=== PATIENT | female | born 1945 | race Caucasian/White ===

== ENCOUNTER 2018-06-25 05:18 | Inpatient (IN) ==
[2018-06-25] MEDS ORDERED: Metoprolol Tartrate 25 MG Tablet PO ONE (05:50)
[2018-06-25] MEDS ORDERED: Chlorhexidine Gluconate 2% 1 Pack (2 Cloths) TOPICAL ONE (05:50)
[2018-06-25] MEDS ORDERED: Sodium Chlor 0.9% Inj 500 ML IV.SIG SCH (06:00)
[2018-06-25] MEDS ORDERED: Bupivacaine/Epinephrine 0.5% Inj 50 ML Vial ONE (06:58)
[2018-06-25 06:59] LABS: Baso % (Auto) 0.3 % (0.0-2.0); Eos # (Auto) 0.1 th/mm3 (0.0-0.4); Eos % (Auto) 0.7 % (0.0-4.0); Hematocrit 36.8 % (35.0-46.0); Hemoglobin 12.5 gm/dL (11.6-15.3); Lymph % (Auto) 22.5 % (9.0-44.0); Mean Corpuscular HGB Conc 33.9 % (32.0-36.0); Mean Corpuscular Hemoglobin 29.8 pg (27.0-34.0); Mean Corpuscular Volume 87.9 fL (80.0-100.0); Mean Platelet Volume 8.2 fL (7.0-11.0); Mono # (Auto) 0.8 th/mm3 (0.0-0.9); Mono % (Auto) 9.1 % (0.0-8.0); Neut # (Auto) 5.9 th/mm3 (1.8-7.7); Neut % (Auto) 67.4 % (16.0-70.0); Platelet Count 286 th/mm3 (150-450); Red Blood Count 4.18 mil/mm3 (4.00-5.30); Red Cell Distribution Width 14.4 % (11.6-17.2); White Blood Count 8.8 th/mm3 (4.0-11.0)
[2018-06-25] MEDS ORDERED: Gelatin Size 100 Topical Foam ONE ×2 (06:59→07:23)
[2018-06-25] MEDS ORDERED: Thrombin Topical Soln 5,000 UNIT Vial TOPICAL ONE ×2 (06:59→14:05)
[2018-06-25] MEDS ORDERED: ceFAZolin 2 GM Premix Inj 2 GM/50 ML PIGGYBACK IV.SIG ONE (06:59)
[2018-06-25] MEDS ORDERED: Heparin - SQ 10,000 UNITS/ML Vial ONE (06:59)
[2018-06-25] MEDS ORDERED: Propofol Inj 500 MG/50 ML Vial ONE ×2 (07:21→14:47)
[2018-06-25] MEDS ORDERED: HYDROmorphone PF Inj 2 MG/ML Vial ONE (07:22)
[2018-06-25] MEDS ORDERED: fentaNYL Citrate Inj 250 MCG/5 ML Ampul ONE (07:22)
[2018-06-25] MEDS ORDERED: Hypromellose 0.3% Opth Gel 10 GM Bottle ONE (07:22)
[2018-06-25] MEDS ORDERED: Ketamine Inj 50 MG/5 ML Syringe IV.PUSH ONE (07:23)
[2018-06-25] MEDS ORDERED: ceFAZolin 2 GM Premix Inj 2 GM/100 ML BAG IV.SIG ONE (07:50)
[2018-06-25] MEDS ORDERED: Sodium Chlor 0.9% Inj 250 ML ONE (07:50)
[2018-06-25] MEDS ORDERED: ceFAZolin 2 GM/NS 100 ML IV; Q8H IV.SIG SCH ×2 (08:00)
[2018-06-25] MEDS: Vancomycin Inj 1,000 MG in Sodium Chlor 0.9% Inj 250 ML IV.SIG SCH ×2 (08:04→11:03)
[2018-06-25] MEDS ORDERED: Sodium Chlor 0.9% Inj 500 ML IV.SIG ONE ×2 (08:33)
[2018-06-25] MEDS ORDERED: Phenylephrine/NS 1000 MCG/10ML Syringe IV.PUSH ONE (08:33)
[2018-06-25] MEDS ORDERED: Lidocaine PF 1% Inj 5 ML Syringe INFILTRATN ONE (08:33)
[2018-06-25 10:08] LABS: ABG Base Excess 0.6 mmol/L (-2-2); ABG PCO2 34 mmHg (38-42); ABG PO2 225 mmHG (61-120)
[2018-06-25 13:52] LABS: ABG Base Excess -0.8 mmol/L (-2-2); ABG PCO2 32 mmHg (38-42); ABG PO2 254 mmHG (61-120)
[2018-06-25] MEDS ORDERED: Tranexamic Acid Inj 1,000 MG/10 ML Ampul ONE (13:58)
[2018-06-25] MEDS ORDERED: Albumin Human 5% Inj 250 ML IV.SIG ONE (14:20)
[2018-06-25 16:09] LABS: ABG Base Excess -4.1 mmol/L (-2-2); ABG PCO2 31 mmHg (38-42); ABG PO2 251 mmHg (61-120)
[2018-06-25 16:52] LABS: Calcium 6.8 mg/dL (8.5-10.1); Carbon Dioxide 19.7 meq/L (21.0-32.0); Potassium 4.4 meq/L (3.5-5.1)
[2018-06-25 17:00] LABS: ABG Base Excess -5.2 mmol/L (-2-2); ABG PCO2 40 mmHg (38-42); ABG PO2 251 mmHg (61-120)
[2018-06-25] MEDS ORDERED: Calcium Chloride Inj 1 GM/10 ML Syringe ONE (17:02)
[2018-06-25] MEDS ORDERED: Sodium Bicarbonate 8.4% Inj 50 MEQ/50 ML Syringe ONE (17:02)
[2018-06-25 17:11] LABS: Total Protein 4.8 g/dL (6.4-8.2)
[2018-06-25 17:13] LABS: Hematocrit 32.7 % (35.0-46.0); Hemoglobin 11.2 gm/dL (11.6-15.3); Mean Corpuscular HGB Conc 34.2 % (32.0-36.0); Mean Corpuscular Hemoglobin 31.3 pg (27.0-34.0); Mean Corpuscular Volume 91.4 fL (80.0-100.0); Mean Platelet Volume 8.4 fL (7.0-11.0); Platelet Count 200 th/mm3 (150-450); Red Blood Count 3.58 mil/mm3 (4.00-5.30); Red Cell Distribution Width 15.9 % (11.6-17.2); White Blood Count 16.4 th/mm3 (4.0-11.0)
[2018-06-25] MEDS ORDERED: Bisacodyl 10 MG Supp RECTAL PRN (18:00)
[2018-06-25] MEDS ORDERED: *morphine SULFATE 10 MG/ML PERIprocedure ONLY ONE (18:26)
--- NOTE | 2018-06-25 18:29 | XR ---
EXAM DATE: 06/25/2018 6:21 PM EDT AGE/SEX: 72 years / Female INDICATIONS: Evaluate central line placement. CLINICAL DATA: This is the patient's initial encounter. Patient reports that signs and symptoms have been present for 1 day and indicates a pain score of Nonresponsive. MEDICAL/SURGICAL HISTORY: Non-responsive. Non-responsive. COMPARISON: . FINDINGS: There is bibasilar atelectasis, trace on the right and mild on the left. No pleural effusion seen. No pneumothorax. Heart size stable, within normal limits. There is a right internal jugular central venous catheter with tip at the atriocaval junction. CONCLUSION: 1. New right IJ line with tip at the atriocaval junction. No pneumothorax. 2. Left greater than right basilar atelectasis. Electronically signed by: Jaspreet Castro MD 06/25/2018 6:27 PM EDT
[2018-06-25] MEDS ORDERED: HYDROmorphone PCA Inj 6 MG/30 ML PCA.VIAL PCA PRN (18:39)
[2018-06-25] MEDS ORDERED: Naloxone Inj 0.4 MG/ML Vial IV.PUSH PRN (18:39)
[2018-06-25] MEDS ORDERED: HYDROmorphone PCA Inj 6 MG/30 ML PCA.VIAL PCA ONE (18:51)
--- NOTE | 2018-06-25 18:51 | P.OP ---
Preoperative Diagnosis: Lumbar degenerative disk disease with spondylolisthesis and severe spinal stenosis Postoperative Diagnosis: Lumbar degenerative disk disease with spondylolisthesis and severe spinal stenosis Date of procedure: 06/25/18 Procedure: L2-3, L3-4, L4-L5 laminectomy, interbody arthrodhesis using PEEK cage and autologous bone graft, L2-3, L3-4, L4-L5 instrumental fixation using transpedicular screws and rods, L2-L3,L3-4, L4-L5 posterolateral fusion using autologous bone graft and demineralized bone matrix. Microsurgical dissection Anesthesia: AYUSHA Surgeon: Rufino Moreno MD Estimator Printing: Bart Perera Pathology: none sent Operation and Findings: INDICATIONS FOR THE SURGICAL PROCEDURE Ms Warner is a 72 year-old female who presented with intractable mechanical back pain and richy evidence of L3, L4 and L5 lower extremity radiculopathy. She had severe degenerative disk disease with degenerative spondylolisthesis and severe spinal stenosis. She has failed maximum nonsurgical management including multiple modalities of conservative treatment as well as pain management interventions by an interventional pain specialist. A surgical decompression and arthrodhesis were indicated as a last resort. The [id number] details of the procedure, indications, alternatives, risks and potential complications were fully discussed with the patient. The patient fully understood. All the questions were answered. No guarantees were given. He voiced requesting the procedure and provided informed consents. He was offered the alternative of delaying the procedure and continuing with nonsurgical management. DETAILS OF THE SURGICAL PROCEDURE Prior to the procedure, the procedure, risks, and potential complications revisited with the patient. Placement of electrodes for intraoperative neurophysiological monitoring was completed. The patient was taken to the operative room, and following induction of general anesthesia, endotracheal intubation was performed. A Ruffin catheter, bilateral ARA hose and sequential compression devices were placed and kept throughout the procedure. The patient was positioned prone, over a Mikael table over a bolsters. All pressure in the preoperative surgical holding room points were carefully padded with eggcrate and gel mattress. The eyes were tapped shut after ointment was applied by the anesthesiologist to prevent corneal abrasion. A Andrew hugger was placed over the exposed lower body to maintain control of the core body temperature. The electrophysiological team placed the needles and electrodes in their proper location and baseline SSEP's and motor evoked potentials were registered. The entrance to each pedicles was marked using a C arm. The lumbar region was prepped and draped in the usual sterile fashion. The surgical procedure was performed in several steps as follow: SURGICAL APPROACH Once the patient was positioned, a localizing cross-table lateral and AP x-ray was performed with a C-arm. Two paramedian small incisions were outlined on the skin approximately 3cm from the midline. The skin incisions were made with a # 10 blade. Small bleeders were controlled with the cautery. The dissection was then carried out into deeper planes and through the thoracolumbar fascia with a Bovie. The intermuscular septum was identified and the muscles were blunted dissected along the septum. The facets and transverse process of L2-3, L3-4, L4- L5 were exposed and the proper anatomical landmarks were identified. A microsurgical self-retaining retractor was placed on the incision, and a localizing lateralizing cross-table x-ray was performed with an instrument underneath a lamina of the lumbar spine. INSTRUMENTAL FIXATION At this point in the procedure, placement of bilateral transpedicular screws was necessary for stabilization of the spine. Initially, the entry point for the screw was selected anatomically at the junction of the facet, with the transverse process, and the pars interarticularis at L2, L3, L4, and L5. This was started with a Giamshetti needle, followed by the use of K wire. A tap was used to create the threads for the screws. Finally bilateral transpedicular screws were carefully placed bilaterally at L3, L4, and L5 under fluoroscopic visualization. An appropriate purchase was achieved with all screws. The position of each screw was assessed anatomically with an AP, lateral, oblique Xrays. An intraoperative scan view of the spine was then performed using the iso -centric c-arm. Each screw was then assessed electrophysiologically stimulating each screw with a nerve stimulator. SURGICAL DECOMPRESSION There was significant mass effect with compression of the neural structures. In order to relieve neural compression, it was necessary to perform a decompressive laminectomy, with decompression of the spinal canal and bilateral lateral recesses. Note that the scope of such decompression was significantly more extensive than the minimal exposure necessary to perform an interbody fusion, as there was extreme facet arthropathy with severe degeneration of the disk spaces and stenosis cause by the hyperthrophic joint facets. At this point of the procedure the operative microscope was draped in the usual sterile fashion and brought to the field. The rest of the surgical procedure was performed using microdissection technique with the exception of the closure. Under the operating microscope, a decompressive laminectomy was carried out at L3-4, L4,5 as follow: The laminae, base of the spinous processes and facets were carefully drilled exposing the ligamentum flavum. The facets were abnormal with severe spondylolisthesis and gross mechanical instability. A large disk protusion was compressing the neural structures and exiting nerve roots. A near complete facetectomy was necessary resulting in further mechanical instability. The ligamentum flavum appeared hypertrophic, resulting on mass effect on the dorsal surface of the neural structures. The superior free border of the ligamentum flavum was elevated with a ligament dissector and the ligamentum flavum was removed with a 3 and 4 mm Kerrison forceps. The ligament was very adherent to the dural sac and during the dissection, ans extreme care was taken during the dissection. The exiting nerve roots were identified, and a wide foraminotomy was performed with a Kerrison in their trajectory towards the neural foramen. Epidural veins located laterally to the dural sac were coagulated with the bipolar cautery, and then incised using microscissors. Gentle medial retraction of the dural sac allowed me to expose the disc space for the discectomy. Upon completion of the discectomy, an excellent decompression of the neural structures was achieved. INTERBODY ARTHRODHESIS In order to correct the narrowing of the disk space and maintain distraction of the space, and to achieve a solid interbody fusion, it was necessary the insertion of an interbody device into the disk space. Otherwise, the disk space would collapse, compromising the result of the surgical procedure. At this point of the procedure, the annulus fibrosus of the disk was carefully coagulated with a bipolar cautery and incised using an 11 bladed knife. Then, a microdiscectomy was carried out in a standard fashion using a combination of straight and up-biting pituitary forceps. A reverse angle curette was applied underneath the posterior longitudinal ligament, and used to push the disk fragments into the disk space, so they can be safely removed with a pituitary forceps. Once the discectomy was completed, it was necessary to decorticate the endplates, in order to eliminate the cartilaginous endplate and to expose healthy bone appropriate to perform the interbody fusion. The endplates at L3-4 , L4,5 were then thoroughly decorticated using increasing size bone tameka and ring curets, eliminating the cartilaginous fragments from both, the superior and inferior endplates. A disk space distractor was applied to the pedicle screws and gentle distraction was applied. This maneuver was assisted by the use of a disk distractor. Increased motility was noted at the disk, which was consistent with instability due to facet arthropathy. Once a thorough preparation of the disk space was achieved, the disk space was irrigated with antibiotic solution, and the interbody fusion was performed by carefully impacting PEEK cages filled with autologous iliac crest bone graft. The use of several shoe impactors with different angulation, allowed me for an excellent, proper position of the interbody cages at L2-3 L3-4 and L4,5. A solid position of the cage with good purchase was achieved. The position of the cages were assessed anatomically with a probe and radiologically with the C-arm. POSTEROLATERAL FUSION The posterolateral fusion is a critical component to the procedure, to prevent future fatigue and failure of the instrumental fixation. Initially, the transverse processes of the vertebral bodies, lateral surface of the facets and the lateral gutters of the spine were carefully cleaned, eliminating all soft tissue and muscle attachments. The area was then irrigated with a large amount of antibiotic solution. Subsequently, the transverse processes, lateral surface of the facets, and lateral gutters of the spine were thoroughly decorticated using the TPS drill with a 5mm cutting jasmyne, exposing cancellous bone, in preparation for the posterolateral fusion. The incision was again irrigated with antibiotic solution. Then, the posterolateral fusion was then performed by carefully packing the lateral gutters of the spine at L2-3, L3-4, L4,5 with autologous bone graft combined with demineralized bone matrix. I packed as much bone as possible. COMPLETION OF THE INSTRUMENTATION AND CLOSURE The rods were brought to the field, applied to all the screws, and the screw caps were sequentially applied. Compression was performed between the pedicle screws, and final tightening of the screws was completed using a torque wrench. The incision was again thoroughly irrigated with several liters of antibiotic solution, and hemostasis secured with the bipolar cautery. A Valsalva Maneuver performed by the anesthesiologist failed to show any evidence of cerebrospinal fluid leak or bleeding. A 7 mm Mikael-Lafleur drain was left in the epidural space and externalized through a separate stab incision. The incision was then closed in planes. 0 Vicryl was used in an interrupted fashion to close the thoracolumbar fascia and the superficial fascia. The subcutaneous tissue was then approximated using 3-0 Vicryl in an interrupted fashion. Special care was taken to avoid space. The skin was then closed with 4-0 Vicryl in a running, subcuticular fashion. Dermabond was applied to the skin. Each plane of closure was irrigated with antibiotic solution. At the end of the procedure the sponge, needle and instrument counts were all correct. Estimated blood loss was 1000 cc. The patient received 2 UPRBC, and autologous blood via the cell saver. The entire procedure was performed using continuous electrophysiological monitoring of the somatosensorial evoked potentials and EMG. The patient received prophylactic antibiotics. The patient was then extubated and transferred to the recovery room in stable condition.
--- NOTE | 2018-06-25 19:00 | P.CONCC ---
History of Present Illness Primary Care Provider: UNKNOWN History of Present Illness: 72 year-old female presented to Dr. Morneo with intractable mechanical back pain and richy evidence of L3, L4 and L5 lower extremity radiculopathy. She had severe degenerative disk disease with degenerative spondylolisthesis and severe spinal stenosis. She has failed maximum nonsurgical management including multiple modalities of conservative treatment as well as pain management interventions by an interventional pain specialist. She underwent L2-3, L3-4, L4-L5 laminectomy, interbody arthrodhesis using PEEK cage and autologous bone graft, L2-3, L3-4, L4-L5 instrumental fixation using transpedicular screws and rods, L2-L3,L3-4, L4-L5 posterolateral fusion using autologous bone graft and demineralized bone matrix and microsurgical dissection by Dr. Rufino Moreno, and general anesthesia. The procedure was uncomplicated and the patient has been admitted to ICU for postop management. Review of Systems All other systems reviewed negative except as stated in HPI PMFSH - History History Provided By: Patient - Medical History Medical History: Medical History (Last Reviewed 06/25/18 @ 06:05 by Tania Boss) Arthritis Back pain CKD (chronic kidney disease) Depression Fibromyalgia Full dentures GERD (gastroesophageal reflux disease) High cholesterol History of blood product transfusion History of hysterectomy Hypertension Hypothyroidism Joint pain Migraine Neck pain Wears glasses - Surgical History Surgical History: Surgical History (Last Reviewed 06/25/18 @ 06:05 by Tania Boss) History of arthroplasty of right knee History of cholecystectomy History of elbow surgery History of laminectomy History of repair of right rotator cuff - Tobacco History Second Hand Smoke Exposure: No Smoking Status: Former smoker - Alcohol History How Often Do You Have a Drink Containing Alcohol: 2 to 4 times a month - Substance Use History Substance History: No History of Abuse - Travel History Recent Travel in the [facility] Within the Last 8 Weeks: No Medications and Allergies Active Medications: Active Medications Hydrocodone Bitart/Acetaminophen ([place] 10/325) 2 tab PO Q4H PRN PRN Reason: PAIN SCALE 6 TO 10 Hydrocodone Bitart/Acetaminophen ([place] 7.5/325) 1 tab PO Q6H PRN PRN Reason: Pain Al Hydroxide/Mg Hydroxide (Milk Of Magnesia Liq) 30 ml PO Q12H PRN PRN Reason: Mild Constipation Atenolol (Tenormin) 100 mg PO DAILY [facility] Atorvastatin Calcium (Lipitor) 10 mg PO DAILY [facility] Bisacodyl (Dulcolax Supp) 10 mg RECTAL DAILY PRN PRN Reason: SEVERE CONSITIPATION Cyclobenzaprine HCl (Flexeril) 10 mg PO Q8H PRN PRN Reason: MUSCLE SPASM Gabapentin (Neurontin) 400 mg PO QID [facility] Hydrochlorothiazide (Hydrodiuril) 25 mg PO QAM [facility] Lactated Ringer's (Lr 1000 Ml Inj) 1,000 mls @ 30 mls/hr IV.SIG .Q24H [facility] Stop: 06/26/18 05:59 Last Admin: 06/25/18 06:30 Dose: 30 mls/hr Sodium Chloride (Ns Inj) 500 mls @ 30 mls/hr IV.SIG .Q10H [facility] Cefazolin Sodium 2,000 mg/ (Sodium Chloride) 100 mls @ 200 mls/hr IV.SIG COMPUTER FORENSIC SPECIALIST [facility] Stop: 06/28/18 07:59 Last Infusion: 06/25/18 09:50 Dose: Infused Vancomycin HCl 1,000 mg/ (Sodium Chloride) 250 mls @ 250 mls/hr IV.SIG COMPUTER FORENSIC SPECIALIST [facility] Stop: 06/28/18 07:59 Last Admin: 06/25/18 11:03 Dose: 250 mls/hr Cefazolin Sodium/Dextrose (Ancef 2 Gm Premix Inj) 2 gm in 50 mls @ 100 mls/hr IV.SIG Q8H [facility] Stop: 06/26/18 11:29 Potassium Chloride/Sodium Chloride (Ns + Kcl 20 Meq Inj) 1,000 mls @ 100 mls/ hr IV.CONT .Q10H [facility] Hydromorphone/Sodium Chloride (Dilaudid Maternal Fetal Physician Inj) 6 mg in 30 mls @ 0 mls/hr MANDARIN SPEAKING NANNY UNSCH PRN PRN Reason: per MANDARIN SPEAKING NANNY parameters Lactulose (Lactulose Liq) 30 ml PO DAILY PRN PRN Reason: SEVERE CONSITIPATION Naloxone HCl (Narcan Inj) 0.4 mg IV.PUSH PRN PRN PRN Reason: SEE LABEL COMMENTS Non-Formulary Medication (Cholecalciferol (Vitamin D3) [Vitamin D3]) 1,000 unit PO DAILY [facility] Non-Formulary Medication (Levothyroxine [Levothyroxine]) 75 mcg PO DAILY [facility] Non-Formulary Medication (Lafexqaiieso-Asv-Vezz-Fa-Vit K [Adults Multivitamin]) 1 tab PO DAILY [facility] Non-Formulary Medication (Omeprazole [Omeprazole]) 20 mg PO DAILY [facility] Non-Formulary Medication (Magnesium [Magnesium]) 250 mg PO DAILY [facility] Pantoprazole Sodium (Protonix) 40 mg PO DAILY [facility] Senna/Docusate Sodium (Lani-Colace) 1 tab PO BID [facility] Sennosides (Senokot) 17.2 mg PO Q12H PRN PRN Reason: Moderate Constipation Allergies Allergy/AdvReac Type Severity Reaction Status Date / Time No Known Allergies Allergy Verified 06/25/18 06:06 Home Medications Medication Instructions Recorded Confirmed Type atenolol 100 mg PO DAILY 06/23/18 06/25/18 History atorvastatin 10 mg PO DAILY 06/23/18 06/25/18 History cholecalciferol (vitamin D3) 1,000 unit PO DAILY 06/23/18 06/25/18 History [Vitamin D3] gabapentin 400 mg PO QID 06/23/18 06/25/18 History hydrochlorothiazide 25 mg PO QAM 06/23/18 06/25/18 History hydrocodone-acetaminophen 1 tab PO Q6H PRN 06/23/18 06/25/18 History levothyroxine 75 mcg PO DAILY 06/23/18 06/25/18 History magnesium 250 mg PO DAILY 06/23/18 06/25/18 History blcmawddbkqe-jfu-kdiw-FA-vit K 1 tab PO DAILY 06/23/18 06/25/18 History [Adults Multivitamin] omeprazole 20 mg PO DAILY 06/23/18 06/25/18 History Physical Exam Vital signs: Vital Signs 06/25/18 06:30 Temperature 98.9 F Pulse Rate 57 L Respiratory Rate 18 Blood Pressure 149/58 H Pulse Oximetry 100 Intake & Output 06/25/18 06/25/18 06/26/18 06:59 18:59 06:59 Intake Total 3610 / 3610 Output Total 1600 / 1600 Balance 2009 Weight 64.1 kg Intake: IV 210 / 210 Vancomycin Inj 1,000 MG In NS Inj 250 ML @ 250 mls/hr IV.SIG COMPUTER FORENSIC SPECIALIST [facility] Rx#:[id number] Ancef 2 GM Premix Inj 2 gm In 100 / 100 100 ml @ 0 mls/hr IV.SIG .STK- [facility] Rx#:[id number] Ancef Inj 2,000 MG In NS Inj 80 100 / 100 ML @ 200 mls/hr IV.SIG COMPUTER FORENSIC SPECIALIST [facility] Rx#:[id number] Anesthesia Amount 3000 / 3000 Intake (Blood Product) Amt 400 / 400 Rbc As-3 Leukoreduced Unit 400 / 400 [id number] Rbc As-3 Leukoreduced Unit 0 / 0 [id number] Output: Estimated Blood Loss 1000 / 1000 Urine Amount (Catheter) 600 / 600 Indwelling Urethral Catheter 600 / 600 Other: Weight On Admission 64.1 kg - Constitutional no acute distress - Routine HEENT Exam Head: Present: normocephalic, atraumatic Eye: Present: EOMI, PERRL ENT: Present: mucous membranes moist - Routine Neck Exam Present: supple, full ROM. Absent: JVD, carotid bruit - Routine Respiratory Exam Absent: accessory muscle use, rhonchi, stridor, wheezes - Routine Cardiovascular Exam Present: RRR, S1, S2. Absent: gallop, rubs - Routine Abdominal Exam Present: soft, normoactive bowel sounds. Absent: tenderness, distended - Routine Extremities Exam Absent: cyanosis, clubbing, edema - Routine Skin Exam Present: intact. Absent: cyanosis, erythema - Routine Neurological Exam Present: alert, oriented X3, moving all extremities - Detailed Neurological Exam: Coma Scale Eye Opening: Spontaneous Verbal Response: Oriented Motor Response: Obey commands [place] Coma Scale Total: 15 - Routine Psychiatric Exam Present: normal affect - Urinary Catheter Management Indwelling Urethral Catheter Cath placed during this visit: yes Reason for continuing: Hourly intake/output Insertion date: 06/25/18 Insertion time: 09:10 Assessment and Plan - Assessment and Plan Plan: Lower back pain with radiculopathy -Status post surgical intervention -Continue gabapentin -Flexeril -Dilaudid as needed Hypertension -Continue Atenolol and hydrochlorothiazide Dyslipidemia -Atorvastatin DVT GI prophylaxis -Teds SCDs -Pharmacological DVT prophylaxis per neurosurgeon -Pantoprazole 35 minutes of critical care
--- NOTE | 2018-06-25 19:07 | XR ---
EXAM DATE: 06/25/2018 7:02 PM EDT AGE/SEX: 72 years / Female INDICATIONS: L2-L5 Posterior lumbar fusion with removal of coflex. CLINICAL DATA: This is the patient's initial encounter. Patient reports that signs and symptoms have been present for 1 day and indicates a pain score of Nonresponsive. MEDICAL/SURGICAL HISTORY: Hypertension. Arthritis. Gastroesophageal reflux disease. Chronic kidney disease. Hysterectomy. Cholecystectomy. COMPARISON: . FINDINGS: Several views in the operating room show removal of posterior spinous process spacers at L4/L5 and L5 /S1. Subsequently, fusion procedure with interbody and posterior instrumentation takes place from L2 through L5. Alignment is near-anatomic. No acute complications are demonstrated. CONCLUSION: Fusion procedure with interbody and posterior instrumentation at L2-L5. Alignment is within normal li mits. No acute complication demonstrated. Electronically signed by: Jaspreet Castro MD 06/25/2018 7:05 PM EDT
[2018-06-25 19:13] LABS: Hemoglobin 11.9 gm/dL (11.6-15.3); Mean Corpuscular HGB Conc 34.1 % (32.0-36.0); Mean Corpuscular Hemoglobin 30.8 pg (27.0-34.0); Mean Corpuscular Volume 90.3 fL (80.0-100.0); Mean Platelet Volume 7.9 fL (7.0-11.0); Platelet Count 164 th/mm3 (150-450); Red Blood Count 3.87 mil/mm3 (4.00-5.30); Red Cell Distribution Width 16.2 % (11.6-17.2); White Blood Count 12.9 th/mm3 (4.0-11.0)
[2018-06-25] MEDS ORDERED: fentaNYL Citrate Inj 100 MCG/2 ML Ampul ONE (19:20)
[2018-06-25] MEDS: ceFAZolin 2 GM Premix Inj 2 GM/50 ML PIGGYBACK IV.SIG SCH (19:46)
[2018-06-25 19:56] LABS: Calcium 9.6 mg/dL (8.5-10.1); Carbon Dioxide 22.2 meq/L (21.0-32.0); Potassium 4.3 meq/L (3.5-5.1)
[2018-06-26] MEDS: ceFAZolin Inj 2,000 MG in Sodium Chlor 0.9% Inj 80 ML IV.SIG SCH ×2 (04:07→14:35)
[2018-06-26] MEDS: Senna/Docusate Sodium 8.6/50 MG Tablet PO SCH ×3 (04:10→20:15)
[2018-06-26] MEDS: Gabapentin 400 MG Capsule PO SCH ×5 (04:11→20:15)
[2018-06-26 06:11] LABS: Baso % (Auto) 0.1 % (0.0-2.0); Hematocrit 27.1 % (35.0-46.0); Hemoglobin 9.3 gm/dL (11.6-15.3); Lymph # (Auto) 1.4 th/mm3 (1.0-4.8); Lymph % (Auto) 8.9 % (9.0-44.0); Mean Corpuscular HGB Conc 34.4 % (32.0-36.0); Mean Corpuscular Hemoglobin 31.2 pg (27.0-34.0); Mean Corpuscular Volume 90.8 fL (80.0-100.0); Mean Platelet Volume 8.2 fL (7.0-11.0); Mono # (Auto) 1.1 th/mm3 (0.0-0.9); Mono % (Auto) 7.1 % (0.0-8.0); Neut # (Auto) 12.9 th/mm3 (1.8-7.7); Neut % (Auto) 83.9 % (16.0-70.0); Platelet Count 134 th/mm3 (150-450); Red Blood Count 2.98 mil/mm3 (4.00-5.30); Red Cell Distribution Width 15.7 % (11.6-17.2); White Blood Count 15.4 th/mm3 (4.0-11.0)
[2018-06-26] MEDS: Levothyroxine 75 MCG Tablet PO SCH (06:38)
[2018-06-26 06:48] LABS: Calcium 8.6 mg/dL (8.5-10.1); Carbon Dioxide 25.3 meq/L (21.0-32.0); Magnesium 1.7 mg/dL (1.5-2.5); Potassium 5.1 meq/L (3.5-5.1)
--- NOTE | 2018-06-26 07:12 | P.PNCC ---
Subjective Subjective Remarks/Hospital Course: 72 year-old female presented to Dr. Moreno with intractable mechanical back pain and richy evidence of L3, L4 and L5 lower extremity radiculopathy. She had severe degenerative disk disease with degenerative spondylolisthesis and severe spinal stenosis. She has failed maximum nonsurgical management including multiple modalities of conservative treatment as well as pain management interventions by an interventional pain specialist. She underwent L2-3, L3-4, L4-L5 laminectomy, interbody arthrodhesis using PEEK cage and autologous bone graft, L2-3, L3-4, L4-L5 instrumental fixation using transpedicular screws and rods, L2-L3,L3-4, L4-L5 posterolateral fusion using autologous bone graft and demineralized bone matrix and microsurgical dissection by Dr. Rufino Moreno, and general anesthesia. The procedure was uncomplicated and the patient has been admitted to ICU for postop management. 06/26: Looks good following complex lumbar spine surgery. Awake alert breathing comfortably. Hemoglobin stable. Normotensive. Wiggles toes, good sensation in feet. No complaints of radicular pain. Objective Vital Signs / I&O: Vital Signs 06/25/18 17:58 06/25/18 18:00 06/25/18 18:15 Temperature 98.4 F Pulse Rate 75 73 68 Respiratory Rate 12 17 10 L Blood Pressure 149/64 H 144/62 H 139/59 L Pulse Oximetry 100 100 100 06/25/18 18:20 06/25/18 18:30 06/25/18 18:35 Temperature Pulse Rate 65 65 Respiratory Rate 11 L 20 Blood Pressure 93/44 L 97/44 L Pulse Oximetry 100 99 98 06/25/18 18:45 06/25/18 19:00 06/25/18 19:15 Temperature Pulse Rate 65 85 63 Respiratory Rate 14 14 12 Blood Pressure 125/53 L 111/51 L 117/54 L Pulse Oximetry 97 94 L 97 06/25/18 19:30 06/25/18 19:45 06/25/18 20:00 Temperature 97.8 F Pulse Rate 64 65 62 Respiratory Rate 14 17 12 Blood Pressure 123/46 L 124/47 L 113/42 L Pulse Oximetry 99 97 98 06/25/18 20:15 06/25/18 21:00 06/25/18 22:00 Temperature 97.5 F L Pulse Rate 66 61 60 Respiratory Rate 14 15 12 Blood Pressure 110/53 L 112/57 L 137/60 Pulse Oximetry 98 100 98 06/25/18 23:00 06/26/18 00:00 06/26/18 01:00 Temperature 97.9 F Pulse Rate 68 62 62 Respiratory Rate 15 12 15 Blood Pressure 135/71 139/53 L 128/72 Pulse Oximetry 99 100 100 06/26/18 02:00 06/26/18 03:00 06/26/18 04:00 Temperature 98.1 F Pulse Rate 60 63 65 Respiratory Rate 20 14 Blood Pressure 132/65 121/55 L 125/54 L Pulse Oximetry 99 100 98 06/26/18 05:00 06/26/18 06:00 Temperature Pulse Rate 63 68 Respiratory Rate 20 Blood Pressure 135/65 140/58 L Pulse Oximetry 98 98 Intake & Output 06/25/18 06/26/18 06/26/18 18:59 06:59 18:59 Intake Total 3610 / 3610 9150 / 9150 Output Total 1600 / 1600 4345 / 4345 Balance 2009 4805 / 4805 Weight 71.2 kg Intake: IV 210 / 210 150 / 150 Vancomycin Inj 1,000 MG In NS 10 / 10 Inj 250 ML @ 250 mls/hr IV.SIG INTAKE RN [facility] Rx#:[id number] Ancef 2 GM Premix Inj 2 gm In 100 / 100 100 ml @ 0 mls/hr IV.SIG .STK- [facility] Rx#:[id number] Ancef 2 GM Premix Inj 2 gm In 50 / 50 50 ml @ 100 mls/hr IV.SIG Q8H [facility] Rx#:[id number] Ancef Inj 2,000 MG In NS Inj 80 100 / 100 100 / 100 ML @ 100 mls/hr IV.SIG Q8H [facility] Rx#:[id number] Anesthesia Amount 3000 / 3000 9000 / 9000 Intake (Blood Product) Amt 400 / 400 Rbc As-3 Leukoreduced Unit 400 / 400 [id number] Rbc As-3 Leukoreduced Unit 0 / 0 [id number] Output: Estimated Blood Loss 1000 / 1000 3000 / 3000 Urine Amount (Catheter) 600 / 600 1085 / 1085 Indwelling Urethral Catheter 600 / 600 1085 / 1085 Wound Drainage 260 / 260 # 1 Medial Back 260 / 260 Result Diagrams: 06/26/18 06:00 06/26/18 06:00 Objective Remarks: - Constitutional no acute distress - Routine HEENT Exam Head: Present: normocephalic, atraumatic Eye: Present: EOMI, PERRL ENT: Present: mucous membranes moist - Routine Neck Exam Present: supple, full ROM. Absent: JVD, carotid bruit - Routine Respiratory Exam Lungs clear, no adventitious sounds. Absent: accessory muscle use, rhonchi, stridor, wheezes - Routine Cardiovascular Exam Present: RRR, S1, S2. Absent: gallop, rubs, no JVD. - Routine Abdominal Exam Present: soft, normoactive bowel sounds, no guarding. Absent: tenderness, distended - Routine Extremities Exam Absent: cyanosis, clubbing, edema, warm, well-perfused. - Routine Skin Exam Present: intact. Absent: cyanosis, erythema - Routine Neurological Exam Present: alert, oriented X3, moving all extremities. Sensation intact both feet. - Detailed Neurological Exam: Coma Scale Eye Opening: Spontaneous Verbal Response: Oriented Motor Response: Obey commands Sonya Coma Scale Total: 15 - Assessment and Plan - Assessment and Plan Plan: Lower back pain with radiculopathy -Status post lumbar spine surgical intervention -Continue gabapentin -Flexeril -Dilaudid as needed -Regular neuro checks lower extremities. Hypertension -Continue Atenolol and hydrochlorothiazide Dyslipidemia -Atorvastatin DVT GI prophylaxis -Teds SCDs -Pharmacological DVT prophylaxis per neurosurgeon -Pantoprazole Overall impression: Good pain relief, stable hemodynamics and respiratory function. Motor sensory function lower extremities intact.
[2018-06-26] MEDS: ceFAZolin 2 GM Premix Inj 2 GM/50 ML PIGGYBACK IV.SIG SCH (07:50)
[2018-06-26] MEDS: Magnesium Oxide 400 MG Tablet PO SCH (09:00)
[2018-06-26] MEDS: Multivitamin/Minerals Therapeutic Tablet PO SCH (09:00)
[2018-06-26] MEDS: Atenolol 100 MG Tablet PO SCH (09:00)
[2018-06-26] MEDS: Pantoprazole Sodium 20 MG DR Tablet PO SCH (09:01)
[2018-06-26] MEDS: hydroCHLOROthiazide 25 MG Tablet PO SCH (09:01)
--- NOTE | 2018-06-26 11:16 | P.PNNS ---
Subjective Interval history: did well overnight. vitals stable, afebrile. Physical Exam Vital signs: Vital Signs 06/25/18 17:58 06/25/18 18:00 06/25/18 18:15 Temperature 98.4 F Pulse Rate 75 73 68 Respiratory Rate 12 17 10 L Blood Pressure 149/64 H 144/62 H 139/59 L Pulse Oximetry 100 100 100 06/25/18 18:20 06/25/18 18:30 06/25/18 18:35 Temperature Pulse Rate 65 65 Respiratory Rate 11 L 20 Blood Pressure 93/44 L 97/44 L Pulse Oximetry 100 99 98 06/25/18 18:45 06/25/18 19:00 06/25/18 19:15 Temperature Pulse Rate 65 85 63 Respiratory Rate 14 14 12 Blood Pressure 125/53 L 111/51 L 117/54 L Pulse Oximetry 97 94 L 97 06/25/18 19:30 06/25/18 19:45 06/25/18 20:00 Temperature 97.8 F Pulse Rate 64 65 62 Respiratory Rate 14 17 12 Blood Pressure 123/46 L 124/47 L 113/42 L Pulse Oximetry 99 97 98 06/25/18 20:15 06/25/18 21:00 06/25/18 22:00 Temperature 97.5 F L Pulse Rate 66 61 60 Respiratory Rate 14 15 12 Blood Pressure 110/53 L 112/57 L 137/60 Pulse Oximetry 98 100 98 06/25/18 23:00 06/26/18 00:00 06/26/18 01:00 Temperature 97.9 F Pulse Rate 68 62 62 Respiratory Rate 15 12 15 Blood Pressure 135/71 139/53 L 128/72 Pulse Oximetry 99 100 100 06/26/18 02:00 06/26/18 03:00 06/26/18 04:00 Temperature 98.1 F Pulse Rate 60 63 65 Respiratory Rate 20 14 Blood Pressure 132/65 121/55 L 125/54 L Pulse Oximetry 99 100 98 06/26/18 05:00 06/26/18 06:00 06/26/18 07:00 Temperature Pulse Rate 63 68 67 Respiratory Rate 20 12 Blood Pressure 135/65 140/58 L 133/54 L Pulse Oximetry 98 98 100 06/26/18 07:47 06/26/18 08:00 06/26/18 10:26 Temperature 98 F Pulse Rate 67 Respiratory Rate 12 26 H Blood Pressure 124/45 L Pulse Oximetry 100 97 Intake & Output 06/25/18 06/26/18 06/26/18 18:59 06:59 18:59 Intake Total 3610 / 3610 9150 / 9150 2315 / 2315 Output Total 1600 / 1600 4345 / 4345 125 / 125 Balance 2009 4805 / 4805 2190 / 2190 Weight 71.2 kg Intake: IV 210 / 210 150 / 150 2255 / 2255 LR 1000 mL Inj 1,000 ML @ 30 1000 / 1000 mls/hr IV.SIG .Q24H [facility] Rx#: [id number] Vancomycin Inj 1,000 MG In NS 10 250 / 250 Inj 250 ML @ 250 mls/hr IV.SIG [facility]I [facility] Rx#:[id number] Ancef 2 GM Premix Inj 2 gm In 100 / 100 100 ml @ 0 mls/hr IV.SIG .STK- [facility] Rx#:[id number] Ancef 2 GM Premix Inj 2 gm In 50 / 50 50 ml @ 100 mls/hr IV.SIG Q8H [facility] Rx#:[id number] Ancef Inj 2,000 MG In NS Inj 80 100 / 100 100 / 100 ML @ 100 mls/hr IV.SIG Q8H [facility] Rx#:[id number] Oral 60 / 60 Anesthesia Amount 3000 / 3000 9000 / 9000 Intake (Blood Product) Amt 400 / 400 Rbc As-3 Leukoreduced Unit 400 / 400 [id number] Rbc As-3 Leukoreduced Unit 0 / 0 [id number] Output: Estimated Blood Loss 1000 / 1000 3000 / 3000 Urine Amount (Catheter) 600 / 600 1085 / 1085 125 / 125 Indwelling Urethral Catheter 600 / 600 1085 / 1085 125 / 125 Wound Drainage 260 / 260 # 1 Medial Back 260 / 260 Narrative: A&O x 3 Motor 5/5 UE/LE Dressing c/d/i drains in place - Urinary Catheter Management Indwelling Urethral Catheter Cath placed during this visit: yes Reason for continuing: Hourly intake/output Insertion date: 06/25/18 Insertion time: 09:10 Assessment and Plan - Plan post-op 3 level TLIF (06/25). admitted to ICU for age and hemodynamic monitoring H/H: 9 this AM (transfused in OR on 06/25 2 units), check again in AM Post-op: D/c ricardo, keep watson one more day, keep drains in, up to 45 degrees in bed and up to chair, PT, mobilize Keep [employer] today-- transition to po tomorrow
[2018-06-26] MEDS: Sod Chloride 0.9% Inj 1,000 ML IV.SIG SCH (18:17)
[2018-06-27] MEDS: Levothyroxine 75 MCG Tablet PO SCH (05:41)
[2018-06-27 06:12] LABS: Carbon Dioxide 29.8 meq/L (21.0-32.0); Potassium 4.8 meq/L (3.5-5.1)
--- NOTE | 2018-06-27 07:41 | P.PNCC ---
Subjective Subjective Remarks/Hospital Course: 72 year-old female presented to Dr. Moreno with intractable mechanical back pain and richy evidence of L3, L4 and L5 lower extremity radiculopathy. She had severe degenerative disk disease with degenerative spondylolisthesis and severe spinal stenosis. She has failed maximum nonsurgical management including multiple modalities of conservative treatment as well as pain management interventions by an interventional pain specialist. She underwent L2-3, L3-4, L4-L5 laminectomy, interbody arthrodhesis using PEEK cage and autologous bone graft, L2-3, L3-4, L4-L5 instrumental fixation using transpedicular screws and rods, L2-L3,L3-4, L4-L5 posterolateral fusion using autologous bone graft and demineralized bone matrix and microsurgical dissection by Dr. Rufino Moreno, and general anesthesia. The procedure was uncomplicated and the patient has been admitted to ICU for postop management. 06/26: Looks good following complex lumbar spine surgery. Awake alert breathing comfortably. Hemoglobin stable. Normotensive. Wiggles toes, good sensation in feet. No complaints of radicular pain. 06/27: Awake alert tolerating diet well. Normal, typical back pain no radicular pain. Motor and sensory function intact grossly lower extremities. Blood pressure control good. Objective Vital Signs / I&O: Vital Signs 06/26/18 07:47 06/26/18 08:00 06/26/18 10:26 Temperature 98 F Pulse Rate 67 Respiratory Rate 12 26 H Blood Pressure 124/45 L Pulse Oximetry 100 97 06/26/18 12:00 06/26/18 13:09 06/26/18 16:00 Temperature 98.4 F 98.4 F Pulse Rate 60 84 Respiratory Rate 17 14 13 Blood Pressure 123/76 138/48 L Pulse Oximetry 100 100 06/26/18 20:00 06/26/18 20:02 06/26/18 20:29 Temperature 100.8 F H Pulse Rate 86 Respiratory Rate 18 14 Blood Pressure 169/72 H Pulse Oximetry 99 96 06/26/18 20:59 06/27/18 00:00 06/27/18 00:17 Temperature 99.8 F H Pulse Rate 83 Respiratory Rate 12 17 16 Blood Pressure 133/60 Pulse Oximetry 98 06/27/18 00:47 06/27/18 04:00 Temperature 99.8 F H Pulse Rate 65 Respiratory Rate 14 12 Blood Pressure 127/58 L Pulse Oximetry 100 Intake & Output 06/26/18 06/27/18 06/27/18 18:59 06:59 18:59 Intake Total 3395 / 3395 Output Total 1185 / 1185 1840 / 1840 Balance 2210 / 2210 -1840 / -1840 Weight 69.7 kg Intake: IV 2855 / 2855 NS + KCl 20 mEq Inj 1,000 ML @ 500 / 500 100 mls/hr IV.CONT .Q10H [facility] Rx #:[id number] LR 1000 mL Inj 1,000 ML @ 30 1000 / 1000 mls/hr IV.SIG .Q24H [facility] Rx#: [id number] Vancomycin Inj 1,000 MG In NS 250 / 250 Inj 250 ML @ 250 mls/hr IV.SIG BRIEF WRITER [facility] Rx#:[id number] Ancef Inj 2,000 MG In NS Inj 80 100 / 100 ML @ 100 mls/hr IV.SIG Q8H [facility] Rx#:[id number] Oral 540 / 540 Output: Urine Amount (Catheter) 1075 / 1075 1750 / 1750 Indwelling Urethral Catheter 1075 / 1075 1750 / 1750 Wound Drainage 110 / 110 90 / 90 # 1 Medial Back 110 / 110 90 / 90 Result Diagrams: 06/26/18 06:00 06/27/18 05:30 Objective Remarks: - Constitutional no acute distress - Routine HEENT Exam Head: Present: normocephalic, atraumatic Eye: Present: EOMI, PERRL ENT: Present: mucous membranes moist - Routine Neck Exam Present: supple, full ROM. Absent: JVD, carotid bruit - Routine Respiratory Exam Lungs clear, no adventitious sounds. Absent: accessory muscle use, rhonchi, stridor, wheezes - Routine Cardiovascular Exam Present: RRR, S1, S2. Absent: gallop, rubs, no JVD. - Routine Abdominal Exam Present: soft, normoactive bowel sounds, no guarding. Absent: tenderness, distended - Routine Extremities Exam Absent: cyanosis, clubbing, edema, warm, well-perfused. - Routine Skin Exam Present: intact. Absent: cyanosis, erythema - Routine Neurological Exam Present: alert, oriented X3, moving all extremities. Sensation grossly intact both feet. - Detailed Neurological Exam: Coma Scale Eye Opening: Spontaneous Verbal Response: Oriented Motor Response: Obey commands [place] Coma Scale Total: 15 - Assessment and Plan - Assessment and Plan Plan: Lower back pain with radiculopathy -Status post lumbar spine surgical intervention -Continue gabapentin -Flexeril -Dilaudid as needed -Regular neuro checks lower extremities. -Physical therapy Hypertension -Continue Atenolol and hydrochlorothiazide Dyslipidemia -Atorvastatin DVT GI prophylaxis -Teds SCDs -Pharmacological DVT prophylaxis per neurosurgeon -Pantoprazole Overall impression: Good pain relief, stable hemodynamics and respiratory function. Motor sensory function lower extremities intact. Uneventful postoperative course following lumbar decompression and stabilization.
[2018-06-27] MEDS: Magnesium Oxide 400 MG Tablet PO SCH (08:05)
[2018-06-27] MEDS: hydroCHLOROthiazide 25 MG Tablet PO SCH (08:05)
[2018-06-27] MEDS: Multivitamin/Minerals Therapeutic Tablet PO SCH (08:06)
[2018-06-27] MEDS: Gabapentin 400 MG Capsule PO SCH ×4 (08:06→20:51)
[2018-06-27] MEDS: Senna/Docusate Sodium 8.6/50 MG Tablet PO SCH ×2 (08:06→20:51)
[2018-06-27] MEDS: Pantoprazole Sodium 20 MG DR Tablet PO SCH (08:06)
[2018-06-27] MEDS: Atenolol 100 MG Tablet PO SCH (08:06)
--- NOTE | 2018-06-27 10:35 | P.PNNS ---
Subjective Interval history: Doing well, mobilizing with PT Physical Exam Vital signs: Vital Signs 06/26/18 12:00 06/26/18 13:09 06/26/18 16:00 Temperature 98.4 F 98.4 F Pulse Rate 60 84 Respiratory Rate 17 14 13 Blood Pressure 123/76 138/48 L Pulse Oximetry 100 100 06/26/18 20:00 06/26/18 20:02 06/26/18 20:29 Temperature 100.8 F H Pulse Rate 86 Respiratory Rate 18 14 Blood Pressure 169/72 H Pulse Oximetry 99 96 06/26/18 20:59 06/27/18 00:00 06/27/18 00:17 Temperature 99.8 F H Pulse Rate 83 Respiratory Rate 12 17 16 Blood Pressure 133/60 Pulse Oximetry 98 06/27/18 00:47 06/27/18 04:00 Temperature 99.8 F H Pulse Rate 65 Respiratory Rate 14 12 Blood Pressure 127/58 L Pulse Oximetry 100 Intake & Output 06/26/18 06/27/18 06/27/18 18:59 06:59 18:59 Intake Total 3395 / 3395 Output Total 1185 / 1185 1840 / 1840 Balance 2210 / 2210 -1840 / -1840 Weight 69.7 kg Intake: IV 2855 / 2855 NS + KCl 20 mEq Inj 1,000 ML @ 500 / 500 100 mls/hr IV.CONT .Q10H [facility] Rx #:[id number] LR 1000 mL Inj 1,000 ML @ 30 1000 / 1000 mls/hr IV.SIG .Q24H [facility] Rx#: [id number] Vancomycin Inj 1,000 MG In NS 250 / 250 Inj 250 ML @ 250 mls/hr IV.SIG ACID CORRECTION HAND [facility] Rx#:[id number] Ancef Inj 2,000 MG In NS Inj 80 100 / 100 ML @ 100 mls/hr IV.SIG Q8H [facility] Rx#:[id number] Oral 540 / 540 Output: Urine Amount (Catheter) 1075 / 1075 1750 / 1750 Indwelling Urethral Catheter 1075 / 1075 1750 / 1750 Wound Drainage 110 / 110 90 / 90 # 1 Medial Back 110 / 110 90 / 90 Narrative: A&O x 3 Motor 5/5 UE/LE Incision c/d/i - Urinary Catheter Management Indwelling Urethral Catheter Cath placed during this visit: yes Reason for continuing: Hourly intake/output Insertion date: 06/25/18 Insertion time: 09:10 Assessment and Plan - Plan post-op 3 level TLIF (06/25). admitted to ICU for age and hemodynamic monitoring H/H: 9 last 06/26 (transfused in OR on 06/25 2 units), Post-op: D/c ricardo, d/c watson, d/c drains, up to 45 degrees in bed and up to chair, PT, mobilize with brace Custom brace to be ordered (Thursday) Transition to po meds - wean [employer] Ok for transfer to step down
[2018-06-27] MEDS: Sod Chloride 0.9% Inj 1,000 ML IV.SIG SCH (16:52)
[2018-06-28] MEDS: Levothyroxine 75 MCG Tablet PO SCH (05:55)
[2018-06-28] MEDS: Pantoprazole Sodium 20 MG DR Tablet PO SCH (08:33)
[2018-06-28] MEDS: Gabapentin 400 MG Capsule PO SCH ×4 (08:33→20:48)
[2018-06-28] MEDS: hydroCHLOROthiazide 25 MG Tablet PO SCH (08:34)
[2018-06-28] MEDS: Sod Chloride 0.9% Inj 1,000 ML IV.SIG SCH (08:34)
[2018-06-28] MEDS: Senna/Docusate Sodium 8.6/50 MG Tablet PO SCH ×2 (08:34→20:48)
[2018-06-28] MEDS: Atenolol 100 MG Tablet PO SCH (08:34)
[2018-06-28] MEDS: Multivitamin/Minerals Therapeutic Tablet PO SCH (08:34)
[2018-06-28] MEDS: Magnesium Oxide 400 MG Tablet PO SCH (08:34)
[2018-06-28 10:24] LABS: Albumin 2.2 g/dL (3.4-5.0); Anion Gap 10 meq/L (5-15); Aspartate Aminotransferase 76 U/L (15-37); Blood Urea Nitrogen 26 mg/dL (7-18); Calcium 8.6 mg/dL (8.5-10.1); Carbon Dioxide 27.3 meq/L (21.0-32.0); Chloride 103 meq/L (98-107); Glomerular Filtration Rate 41 mL/min (>89); Glucose,Random 131 mg/dL (74-106); Magnesium 1.3 mg/dL (1.5-2.5); Potassium 4.1 meq/L (3.5-5.1); Sodium 140 meq/L (136-145)
[2018-06-28 10:32] LABS: Alanine Aminotransferase 24 U/L (10-53); Alkaline Phosphatase 97 U/L (45-117); Free T4 (Free Thyroxine) 1.38 ng/dL (0.76-1.46); Phosphorus 1.9 mg/dL (2.5-4.9); Total Protein 5.6 g/dL (6.4-8.2)
[2018-06-28 11:44] LABS: Baso % (Auto) 0.4 % (0.0-2.0); Eos # (Auto) 0.1 th/mm3 (0.0-0.4); Eos % (Auto) 1.2 % (0.0-4.0); Hematocrit 23.9 % (35.0-46.0); Hemoglobin 7.9 gm/dL (11.6-15.3); Lymph # (Auto) 2.6 th/mm3 (1.0-4.8); Lymph % (Auto) 21.1 % (9.0-44.0); Mean Corpuscular HGB Conc 33.2 % (32.0-36.0); Mean Corpuscular Hemoglobin 31.3 pg (27.0-34.0); Mean Corpuscular Volume 94.2 fL (80.0-100.0); Mean Platelet Volume 8.5 fL (7.0-11.0); Mono # (Auto) 1.2 th/mm3 (0.0-0.9); Mono % (Auto) 9.6 % (0.0-8.0); Neut # (Auto) 8.4 th/mm3 (1.8-7.7); Neut % (Auto) 67.7 % (16.0-70.0); Platelet Count 155 th/mm3 (150-450); Red Blood Count 2.53 mil/mm3 (4.00-5.30); Red Cell Distribution Width 15.8 % (11.6-17.2); White Blood Count 12.4 th/mm3 (4.0-11.0)
[2018-06-28 13:11] LABS: Hemoglobin A1c 5.3 % (4.3-6.0)
--- NOTE | 2018-06-28 13:44 | P.PNIM ---
Subjective Interval history: 72 year-old female presented to Dr. Moreno with intractable mechanical back pain and richy evidence of L3, L4 and L5 lower extremity radiculopathy. She had severe degenerative disk disease with degenerative spondylolisthesis and severe spinal stenosis. She has failed maximum nonsurgical management including multiple modalities of conservative treatment as well as pain management interventions by an interventional pain specialist. She underwent L2-3, L3-4, L4-L5 laminectomy, interbody arthrodhesis using PEEK cage and autologous bone graft, L2-3, L3-4, L4-L5 instrumental fixation using transpedicular screws and rods, L2-L3,L3-4, L4-L5 posterolateral fusion using autologous bone graft and demineralized bone matrix and microsurgical dissection by Dr. Rufino Moreno, and general anesthesia. The procedure was uncomplicated and the patient has been admitted to ICU for postop management. 06/26: Looks good following complex lumbar spine surgery. Awake alert breathing comfortably. Hemoglobin stable. Normotensive. Wiggles toes, good sensation in feet. No complaints of radicular pain. 06/27: Awake alert tolerating diet well. Normal, typical back pain no radicular pain. Motor and sensory function intact grossly lower extremities. Blood pressure control good. 06-28 TRANSFERRED TO OUR SERVICE TODAY DENIES MUCH PAIN AT THE MOMENT HAS BEEN SWITCHED TO PO PAIN MEDS DW RN AND PT PT STATES SHE IS GOING HOME TOMORROW TRANSFER OUT OF THE ICU ADD ROBAXIN IF AVAILABLE INSTEAD OF FLEXERIL Physical Exam Vital signs: Vital Signs 06/27/18 16:00 06/27/18 19:40 06/27/18 20:00 Temperature 98.4 F 99.8 F H Pulse Rate 77 81 Respiratory Rate 21 20 Blood Pressure 144/74 H 131/96 H Pulse Oximetry 99 100 96 06/27/18 23:00 06/28/18 00:00 06/28/18 04:00 Temperature 100.0 F H 99.7 F H Pulse Rate 73 64 Respiratory Rate 20 20 14 Blood Pressure 134/62 126/54 L Pulse Oximetry 98 100 06/28/18 08:00 06/28/18 10:07 06/28/18 11:08 Temperature 98.9 F Pulse Rate 63 Respiratory Rate 18 16 Blood Pressure 150/62 H Pulse Oximetry 100 98 06/28/18 12:00 Temperature 98.3 F Pulse Rate 70 Respiratory Rate 15 Blood Pressure 113/49 L Pulse Oximetry 99 Intake & Output 06/27/18 06/28/18 06/28/18 18:59 06:59 18:59 Intake Total 1000 / 1000 1000 / 1000 300 / 300 Output Total 1600 / 1600 1280 / 1280 Balance -600 / -600 -280 / -280 300 / 300 Weight 68.5 kg Intake: IV 550 / 550 1000 / 1000 300 / 300 NS Inj 1,000 ML @ 50 mls/hr IV. 550 / 550 1000 / 1000 300 / 300 SIG .Q20H RAHEL Rx#:[id number] Oral 450 / 450 Output: Urine 1200 / 1200 Urine Amount (Catheter) 1600 / 1600 Female External 750 / 750 Indwelling Urethral Catheter 850 / 850 Wound Drainage 80 / 80 # 1 Medial Back 80 / 80 Other: # Voids 3 Narrative: GENERAL: AWAKE ALERT AND ORIENTED X3 TALKATIVE AND COOPERATIVE SKIN: Warm and dry. HEAD: Atraumatic. Normocephalic. EYES: Pupils equal and round. No scleral icterus. No injection or drainage. ENT: No nasal bleeding or discharge. Mucous membranes pink and moist. NECK: Trachea midline. No JVD. CARDIOVASCULAR: Regular rate and rhythm. S1,S2 NO S3 OR S4 RESPIRATORY: No accessory muscle use. Clear to auscultation. Breath sounds equal bilaterally. GASTROINTESTINAL: Abdomen soft, non-tender, nondistended. Hepatic and splenic margins not palpable. MUSCULOSKELETAL: Extremities without clubbing, cyanosis, or edema. No obvious deformities. NEUROLOGICAL: Awake and alert. No obvious cranial nerve deficits. Motor grossly within normal limits. Five out of 5 muscle strength in the arms and legs. Normal speech. PSYCHIATRIC: Appropriate mood and affect; insight and judgment normal. - Urinary Catheter Management Indwelling Urethral Catheter Cath placed during this visit: yes, but has since been removed by the nurse Reason for continuing: Decision to DC catheter Insertion date: 06/25/18 Insertion time: 09:10 Removal date: 06/27/18 Removal time: 12:00 Female External Cath placed during this visit: yes, but has since been removed by the nurse Reason for continuing: Not indwelling catheter Removal date: 06/27/18 Removal time: 12:00 Results - Labs CBC & Chem 7: 06/28/18 11:00 06/28/18 09:00 Laboratory Results - last 24 hr 06/28/18 06/28/18 06/28/18 09:00 11:00 11:00 WBC 12.4 H RBC 2.53 L Hgb 7.9 L Hct 23.9 L MCV 94.2 MCH 31.3 MCHC 33.2 RDW 15.8 Plt Count 155 MPV 8.5 Neut % (Auto) 67.7 Lymph % (Auto) 21.1 [place] % (Auto) 9.6 H Eos % (Auto) 1.2 Baso % (Auto) 0.4 Neut # (Auto) 8.4 H Lymph # (Auto) 2.6 [place] # (Auto) 1.2 H Eos # (Auto) 0.1 Baso # (Auto) 0.0 WBC Differential . Differential Comment Auto diff final Sodium 140 Potassium 4.1 Chloride 103 Carbon Dioxide 27.3 Anion Gap 10 BUN 26 H Creatinine 1.28 H Estimated GFR 41 L Random Glucose 131 H Hemoglobin A1c 5.3 Calcium 8.6 Phosphorus 1.9 L Magnesium 1.3 L Total Bilirubin 0.8 AST 76 H ALT 24 Alkaline Phosphatase 97 Total Protein 5.6 L D Albumin 2.2 L TSH 1.100 Free T4 1.38 - Imaging ITS Impressions Chest X-Ray 06/25/18 00:00 CONCLUSION: 1. New right IJ line with tip at the atriocaval junction. No pneumothorax. 2. Left greater than right basilar atelectasis. Lumbar Spine X-Ray 06/25/18 00:00 CONCLUSION: Fusion procedure with interbody and posterior instrumentation at L2-L5. Alignment is within normal limits. No acute complication demonstrated. - Procedures Preoperative Diagnosis: Lumbar degenerative disk disease with spondylolisthesis and severe spinal stenosis Postoperative Diagnosis: Lumbar degenerative disk disease with spondylolisthesis and severe spinal stenosis Date of procedure: 06/25/18 Procedure: L2-3, L3-4, L4-L5 laminectomy, interbody arthrodhesis using PEEK cage and autologous bone graft, L2-3, L3-4, L4-L5 instrumental fixation using transpedicular screws and rods, L2-L3,L3-4, L4-L5 posterolateral fusion using autologous bone graft and demineralized bone matrix. Microsurgical dissection Anesthesia: GETA Surgeon: Rufino Moreno MD Putty And Patch Worker: Bart Perera Pathology: none sent Operation and Findings: INDICATIONS FOR THE SURGICAL PROCEDURE Ms Warner is a 72 year-old female who presented with intractable mechanical back pain and richy evidence of L3, L4 and L5 lower extremity radiculopathy. She had severe degenerative disk disease with degenerative spondylolisthesis and severe spinal stenosis. She has failed maximum nonsurgical management including multiple modalities of conservative treatment as well as pain management interventions by an interventional pain specialist. A surgical decompression and arthrodhesis were indicated as a last resort. The [id number] details of the procedure, indications, alternatives, risks and potential complications were fully discussed with the patient. The patient fully understood. All the questions were answered. No guarantees were given. He voiced requesting the procedure and provided informed consents. He was offered the alternative of delaying the procedure and continuing with nonsurgical management. DETAILS OF THE SURGICAL PROCEDURE Prior to the procedure, the procedure, risks, and potential complications revisited with the patient. Placement of electrodes for intraoperative neurophysiological monitoring was completed. The patient was taken to the operative room, and following induction of general anesthesia, endotracheal intubation was performed. A Ruffin catheter, bilateral ARA hose and sequential compression devices were placed and kept throughout the procedure. The patient was positioned prone, over a Mikael table over a bolsters. All pressure in the preoperative surgical holding room points were carefully padded with eggcrate and gel mattress. The eyes were tapped shut after ointment was applied by the anesthesiologist to prevent corneal abrasion. A Andrew hugger was placed over the exposed lower body to maintain control of the core body temperature. The electrophysiological team placed the needles and electrodes in their proper location and baseline SSEP's and motor evoked potentials were registered. The entrance to each pedicles was marked using a C arm. The lumbar region was prepped and draped in the usual sterile fashion. The surgical procedure was performed in several steps as follow: SURGICAL APPROACH Once the patient was positioned, a localizing cross-table lateral and AP x-ray was performed with a C-arm. Two paramedian small incisions were outlined on the skin approximately 3cm from the midline. The skin incisions were made with a # 10 blade. Small bleeders were controlled with the cautery. The dissection was then carried out into deeper planes and through the thoracolumbar fascia with a Bovie. The intermuscular septum was identified and the muscles were blunted dissected along the septum. The facets and transverse process of L2-3, L3-4, L4- L5 were exposed and the proper anatomical landmarks were identified. A microsurgical self-retaining retractor was placed on the incision, and a localizing lateralizing cross-table x-ray was performed with an instrument underneath a lamina of the lumbar spine. INSTRUMENTAL FIXATION At this point in the procedure, placement of bilateral transpedicular screws was necessary for stabilization of the spine. Initially, the entry point for the screw was selected anatomically at the junction of the facet, with the transverse process, and the pars interarticularis at L2, L3, L4, and L5. This was started with a Giamshetti needle, followed by the use of K wire. A tap was used to create the threads for the screws. Finally bilateral transpedicular screws were carefully placed bilaterally at L3, L4, and L5 under fluoroscopic visualization. An appropriate purchase was achieved with all screws. The position of each screw was assessed anatomically with an AP, lateral, oblique Xrays. An intraoperative scan view of the spine was then performed using the iso -centric c-arm. Each screw was then assessed electrophysiologically stimulating each screw with a nerve stimulator. SURGICAL DECOMPRESSION There was significant mass effect with compression of the neural structures. In order to relieve neural compression, it was necessary to perform a decompressive laminectomy, with decompression of the spinal canal and bilateral lateral recesses. Note that the scope of such decompression was significantly more extensive than the minimal exposure necessary to perform an interbody fusion, as there was extreme facet arthropathy with severe degeneration of the disk spaces and stenosis cause by the hyperthrophic joint facets. At this point of the procedure the operative microscope was draped in the usual sterile fashion and brought to the field. The rest of the surgical procedure was performed using microdissection technique with the exception of the closure. Under the operating microscope, a decompressive laminectomy was carried out at L3-4, L4,5 as follow: The laminae, base of the spinous processes and facets were carefully drilled exposing the ligamentum flavum. The facets were abnormal with severe spondylolisthesis and gross mechanical instability. A large disk protusion was compressing the neural structures and exiting nerve roots. A near complete facetectomy was necessary resulting in further mechanical instability. The ligamentum flavum appeared hypertrophic, resulting on mass effect on the dorsal surface of the neural structures. The superior free border of the ligamentum flavum was elevated with a ligament dissector and the ligamentum flavum was removed with a 3 and 4 mm Kerrison forceps. The ligament was very adherent to the dural sac and during the dissection, ans extreme care was taken during the dissection. The exiting nerve roots were identified, and a wide foraminotomy was performed with a Kerrison in their trajectory towards the neural foramen. Epidural veins located laterally to the dural sac were coagulated with the bipolar cautery, and then incised using microscissors. Gentle medial retraction of the dural sac allowed me to expose the disc space for the discectomy. Upon completion of the discectomy, an excellent decompression of the neural structures was achieved. INTERBODY ARTHRODHESIS In order to correct the narrowing of the disk space and maintain distraction of the space, and to achieve a solid interbody fusion, it was necessary the insertion of an interbody device into the disk space. Otherwise, the disk space would collapse, compromising the result of the surgical procedure. At this point of the procedure, the annulus fibrosus of the disk was carefully coagulated with a bipolar cautery and incised using an 11 bladed knife. Then, a microdiscectomy was carried out in a standard fashion using a combination of straight and up-biting pituitary forceps. A reverse angle curette was applied underneath the posterior longitudinal ligament, and used to push the disk fragments into the disk space, so they can be safely removed with a pituitary forceps. Once the discectomy was completed, it was necessary to decorticate the endplates, in order to eliminate the cartilaginous endplate and to expose healthy bone appropriate to perform the interbody fusion. The endplates at L3-4 , L4,5 were then thoroughly decorticated using increasing size bone tameka and ring curets, eliminating the cartilaginous fragments from both, the superior and inferior endplates. A disk space distractor was applied to the pedicle screws and gentle distraction was applied. This maneuver was assisted by the use of a disk distractor. Increased motility was noted at the disk, which was consistent with instability due to facet arthropathy. Once a thorough preparation of the disk space was achieved, the disk space was irrigated with antibiotic solution, and the interbody fusion was performed by carefully impacting PEEK cages filled with autologous iliac crest bone graft. The use of several shoe impactors with different angulation, allowed me for an excellent, proper position of the interbody cages at L2-3 L3-4 and L4,5. A solid position of the cage with good purchase was achieved. The position of the cages were assessed anatomically with a probe and radiologically with the C-arm. POSTEROLATERAL FUSION The posterolateral fusion is a critical component to the procedure, to prevent future fatigue and failure of the instrumental fixation. Initially, the transverse processes of the vertebral bodies, lateral surface of the facets and the lateral gutters of the spine were carefully cleaned, eliminating all soft tissue and muscle attachments. The area was then irrigated with a large amount of antibiotic solution. Subsequently, the transverse processes, lateral surface of the facets, and lateral gutters of the spine were thoroughly decorticated using the TPS drill with a 5mm cutting jasmyne, exposing cancellous bone, in preparation for the posterolateral fusion. The incision was again irrigated with antibiotic solution. Then, the posterolateral fusion was then performed by carefully packing the lateral gutters of the spine at L2-3, L3-4, L4,5 with autologous bone graft combined with demineralized bone matrix. I packed as much bone as possible. COMPLETION OF THE INSTRUMENTATION AND CLOSURE The rods were brought to the field, applied to all the screws, and the screw caps were sequentially applied. Compression was performed between the pedicle screws, and final tightening of the screws was completed using a torque wrench. The incision was again thoroughly irrigated with several liters of antibiotic solution, and hemostasis secured with the bipolar cautery. A Valsalva Maneuver performed by the anesthesiologist failed to show any evidence of cerebrospinal fluid leak or bleeding. A 7 mm Mikael-Lafleur drain was left in the epidural space and externalized through a separate stab incision. The incision was then closed in planes. 0 Vicryl was used in an interrupted fashion to close the thoracolumbar fascia and the superficial fascia. The subcutaneous tissue was then approximated using 3-0 Vicryl in an interrupted fashion. Special care was taken to avoid space. The skin was then closed with 4-0 Vicryl in a running, subcuticular fashion. Dermabond was applied to the skin. Each plane of closure was irrigated with antibiotic solution. At the end of the procedure the sponge, needle and instrument counts were all correct. Estimated blood loss was 1000 cc. The patient received 2 UPRBC, and autologous blood via the cell saver. The entire procedure was performed using continuous electrophysiological monitoring of the somatosensorial evoked potentials and EMG. The patient received prophylactic antibiotics. The patient was then extubated and transferred to the recovery room in stable condition. Documented By: Rufino Moreno MD Assessment and Plan - Plan Lower back pain with radiculopathy -Status post lumbar spine surgical intervention -Continue gabapentin -ROBAXIN IF AVAILABLE SWITCH TO PO MEDS -Regular neuro checks lower extremities. -Physical therapy OT Hypertension -Continue Atenolol and hydrochlorothiazide Dyslipidemia -Atorvastatin DVT GI prophylaxis -Teds SCDs -Pharmacological DVT prophylaxis per neurosurgeon -Pantoprazole Overall impression: Good pain relief, stable hemodynamics and respiratory function. Motor sensory function lower extremities intact. Uneventful postoperative course following lumbar decompression and stabilization. OK TO MOVE OUT OF ICU Code Status: FULL CODE Discussed Condition With: RN AND PT Discharge Planning: HOPEFULLY HOME TOMORROW
[2018-06-28] MEDS: Methocarbamol 500 MG Tablet PO SCH ×2 (14:41→21:05)
[2018-06-28] MEDS ORDERED: Magnesium Sulfate Inj 2 GM in Sodium Chlor 0.9% Inj 96 ML IV.SIG ONE (15:00)
--- NOTE | 2018-06-28 15:01 | P.PNNS ---
Subjective Interval history: 06/28: still requiring her [employer], only ambulated short distance yesterday and had sat up in chair for a bout an hour. <Renetta Rosario - Last Filed: 06/28/18 15:01> Physical Exam Vital signs: Vital Signs 06/27/18 16:00 06/27/18 19:40 06/27/18 20:00 Temperature 98.4 F 99.8 F H Pulse Rate 77 81 Respiratory Rate 21 20 Blood Pressure 144/74 H 131/96 H Pulse Oximetry 99 100 96 06/27/18 23:00 06/28/18 00:00 06/28/18 04:00 Temperature 100.0 F H 99.7 F H Pulse Rate 73 64 Respiratory Rate 20 20 14 Blood Pressure 134/62 126/54 L Pulse Oximetry 98 100 06/28/18 08:00 06/28/18 10:07 06/28/18 11:08 Temperature 98.9 F Pulse Rate 63 Respiratory Rate 18 16 Blood Pressure 150/62 H Pulse Oximetry 100 98 06/28/18 12:00 06/28/18 14:40 Temperature 98.3 F Pulse Rate 70 Respiratory Rate 15 18 Blood Pressure 113/49 L Pulse Oximetry 99 Intake & Output 06/27/18 06/28/18 06/28/18 18:59 06:59 18:59 Intake Total 1000 / 1000 1000 / 1000 300 / 300 Output Total 1600 / 1600 1280 / 1280 Balance -600 / -600 -280 / -280 300 / 300 Weight 68.5 kg Intake: IV 550 / 550 1000 / 1000 300 / 300 NS Inj 1,000 ML @ 50 mls/hr IV. 550 / 550 1000 / 1000 300 / 300 SIG .Q20H RAHEL Rx#:[id number] Oral 450 / 450 Output: Urine 1200 / 1200 Urine Amount (Catheter) 1600 / 1600 Female External 750 / 750 Indwelling Urethral Catheter 850 / 850 Wound Drainage 80 / 80 # 1 Medial Back 80 / 80 Other: # Voids 3 Narrative: A&O x 3 Laying in bed in no acute distress Motor 5/5 UE/LE pupils equal, facial motor symmetric - Urinary Catheter Management Indwelling Urethral Catheter Cath placed during this visit: yes, but has since been removed by the nurse Reason for continuing: Decision to DC catheter Insertion date: 06/25/18 Insertion time: 09:10 Removal date: 06/27/18 Removal time: 12:00 Female External Cath placed during this visit: yes, but has since been removed by the nurse Reason for continuing: Not indwelling catheter Removal date: 06/27/18 Removal time: 12:00 <Renetta Rosario - Last Filed: 06/28/18 15:01> - Urinary Catheter Management Indwelling Urethral Catheter Cath placed during this visit: no Female External Cath placed during this visit: no <Rufino Moreno - Last Filed: 07/02/18 14:54> Assessment and Plan - Plan post-op 3 level TLIF (06/25). admitted to ICU for age and hemodynamic monitoring Plan: Awaiting Custom brace, cont TLSO when out of bed dc [employer] and transition to po meds clear to transfer out of ICU to 6N dc planning to home with [facility] service tomorrow <Renetta Rosario - Last Filed: 06/28/18 15:01> - Plan The exam, history, and the medical decision-making described in the above note were completed with the assistance of the mid-level provider. I reviewed and agree with the findings presented. I attest that I had a [id number] encounter with the patient on the same day, and personally performed and documented my assessment and findings in the medical record. <Rufino Moreno - Last Filed: 07/02/18 14:54>
[2018-06-29 04:53] LABS: Baso % (Auto) 0.2 % (0.0-2.0); Eos # (Auto) 0.2 th/mm3 (0.0-0.4); Eos % (Auto) 1.6 % (0.0-4.0); Hematocrit 24.6 % (35.0-46.0); Hemoglobin 8.1 gm/dL (11.6-15.3); Lymph # (Auto) 2.3 th/mm3 (1.0-4.8); Lymph % (Auto) 20.2 % (9.0-44.0); Mean Corpuscular HGB Conc 32.8 % (32.0-36.0); Mean Corpuscular Volume 94.4 fL (80.0-100.0); Mean Platelet Volume 8.6 fL (7.0-11.0); Mono % (Auto) 8.8 % (0.0-8.0); Neut % (Auto) 69.2 % (16.0-70.0); Platelet Count 178 th/mm3 (150-450); Red Blood Count 2.61 mil/mm3 (4.00-5.30); Red Cell Distribution Width 15.8 % (11.6-17.2); White Blood Count 11.6 th/mm3 (4.0-11.0)
[2018-06-29 05:28] LABS: Alanine Aminotransferase 26 U/L (10-53); Albumin 2.2 g/dL (3.4-5.0); Alkaline Phosphatase 131 U/L (45-117); Anion Gap 10 meq/L (5-15); Aspartate Aminotransferase 57 U/L (15-37); Blood Urea Nitrogen 29 mg/dL (7-18); Calcium 8.5 mg/dL (8.5-10.1); Carbon Dioxide 28.4 meq/L (21.0-32.0); Chloride 101 meq/L (98-107); Glomerular Filtration Rate 38 mL/min (>89); Glucose,Random 94 mg/dL (74-106); Magnesium 2.1 mg/dL (1.5-2.5); Phosphorus 2.9 mg/dL (2.5-4.9); Potassium 4.7 meq/L (3.5-5.1); Sodium 139 meq/L (136-145); Total Protein 5.9 g/dL (6.4-8.2)
[2018-06-29] MEDS: Levothyroxine 75 MCG Tablet PO SCH (06:20)
[2018-06-29] MEDS: Magnesium Oxide 400 MG Tablet PO SCH (08:37)
[2018-06-29] MEDS: Senna/Docusate Sodium 8.6/50 MG Tablet PO SCH (08:37)
[2018-06-29] MEDS: hydroCHLOROthiazide 25 MG Tablet PO SCH (08:38)
[2018-06-29] MEDS: Gabapentin 400 MG Capsule PO SCH ×2 (08:38→13:05)
[2018-06-29] MEDS: Atenolol 100 MG Tablet PO SCH (08:38)
[2018-06-29] MEDS: Multivitamin/Minerals Therapeutic Tablet PO SCH (08:38)
[2018-06-29] MEDS: Pantoprazole Sodium 20 MG DR Tablet PO SCH (08:38)
[2018-06-29 09:45] VITALS: PULSE 66
--- NOTE | 2018-06-29 12:39 | P.PNIM ---
Subjective Interval history: 72 year-old female presented to Dr. Moreno with intractable mechanical back pain and richy evidence of L3, L4 and L5 lower extremity radiculopathy. She had severe degenerative disk disease with degenerative spondylolisthesis and severe spinal stenosis. She has failed maximum nonsurgical management including multiple modalities of conservative treatment as well as pain management interventions by an interventional pain specialist. She underwent L2-3, L3-4, L4-L5 laminectomy, interbody arthrodhesis using PEEK cage and autologous bone graft, L2-3, L3-4, L4-L5 instrumental fixation using transpedicular screws and rods, L2-L3,L3-4, L4-L5 posterolateral fusion using autologous bone graft and demineralized bone matrix and microsurgical dissection by Dr. Rufino Moreno, and general anesthesia. The procedure was uncomplicated and the patient has been admitted to ICU for postop management. 06/26: Looks good following complex lumbar spine surgery. Awake alert breathing comfortably. Hemoglobin stable. Normotensive. Wiggles toes, good sensation in feet. No complaints of radicular pain. 06/27: Awake alert tolerating diet well. Normal, typical back pain no radicular pain. Motor and sensory function intact grossly lower extremities. Blood pressure control good. 06-28 TRANSFERRED TO OUR SERVICE TODAY DENIES MUCH PAIN AT THE MOMENT HAS BEEN SWITCHED TO PO PAIN MEDS DW RN AND PT PT STATES SHE IS GOING HOME TOMORROW TRANSFER OUT OF THE ICU ADD ROBAXIN IF AVAILABLE INSTEAD OF FLEXERIL 06-29 cleared by surgery wants to go home with [facility] will do face to face and dc paperwork [facility] earlier Physical Exam Vital signs: Vital Signs 06/28/18 14:40 06/28/18 15:41 06/28/18 16:00 Temperature 98 F Pulse Rate 69 Respiratory Rate 18 16 16 Blood Pressure 125/54 L Pulse Oximetry 93 L 06/28/18 20:00 06/29/18 00:00 06/29/18 04:00 Temperature 99.5 F 98.7 F 99 F Pulse Rate 64 68 62 Respiratory Rate 16 17 12 Blood Pressure 94/44 L 117/51 L 113/53 L Pulse Oximetry 96 100 99 06/29/18 08:00 Temperature 98.4 F Pulse Rate 66 Respiratory Rate 12 Blood Pressure 144/62 H Pulse Oximetry 97 Intake & Output 06/28/18 06/29/1818 18:59 06:59 18:59 Intake Total 850 / 850 300 / 300 Output Total 1000 / 1000 750 / 750 Balance -150 / -150 -450 / -450 Weight 69.4 kg Intake: IV 400 / 400 Magnesium Sulfate Inj 2 GM In 100 / 100 NS Inj 96 ML @ 50 mls/hr IV.SIG ONCE ONE Rx#:[id number] NS Inj 1,000 ML @ 50 mls/hr IV. 300 / 300 SIG .Q20H RAHEL Rx#:[id number] Oral 450 / 450 300 / 300 Output: Urine 1000 / 1000 Urine Amount (Catheter) 750 / 750 Female External 750 / 750 Narrative: GENERAL: AWAKE ALERT AND ORIENTED X3 TALKATIVE AND COOPERATIVE SKIN: Warm and dry. HEAD: Atraumatic. Normocephalic. EYES: Pupils equal and round. No scleral icterus. No injection or drainage. ENT: No nasal bleeding or discharge. Mucous membranes pink and moist. NECK: Trachea midline. No JVD. WEARING BRACE CARDIOVASCULAR: Regular rate and rhythm. S1,S2 NO S3 OR S4 RESPIRATORY: No accessory muscle use. Clear to auscultation. Breath sounds equal bilaterally. GASTROINTESTINAL: Abdomen soft, non-tender, nondistended. Hepatic and splenic margins not palpable. MUSCULOSKELETAL: Extremities without clubbing, cyanosis, or edema. No obvious deformities. NEUROLOGICAL: Awake and alert. No obvious cranial nerve deficits. Motor grossly within normal limits. Five out of 5 muscle strength in the arms and legs. Normal speech. PSYCHIATRIC: Appropriate mood and affect; insight and judgment normal. wearing BRACE - Urinary Catheter Management Indwelling Urethral Catheter Cath placed during this visit: yes, but has since been removed by the nurse Reason for continuing: Decision to DC catheter Insertion date: 06/25/18 Insertion time: 09:10 Removal date: 06/27/18 Removal time: 12:00 Female External Cath placed during this visit: yes, but has since been removed by the nurse Reason for continuing: Not indwelling catheter Removal date: 06/27/18 Removal time: 12:00 Results - Labs CBC & Chem 7: 06/29/18 03:52 06/29/18 03:52 Laboratory Results - last 24 hr 06/28/18 06/29/18 06/29/18 11:00 03:52 03:52 WBC 11.6 H RBC 2.61 L Hgb 8.1 L Hct 24.6 L MCV 94.4 MCH 31.0 MCHC 32.8 RDW 15.8 Plt Count 178 MPV 8.6 Neut % (Auto) 69.2 Lymph % (Auto) 20.2 [place] % (Auto) 8.8 H Eos % (Auto) 1.6 Baso % (Auto) 0.2 Neut # (Auto) 8.0 H Lymph # (Auto) 2.3 [place] # (Auto) 1.0 H Eos # (Auto) 0.2 Baso # (Auto) 0.0 WBC Differential . Differential Comment Auto diff final Sodium 139 Potassium 4.7 Chloride 101 Carbon Dioxide 28.4 Anion Gap 10 BUN 29 H Creatinine 1.38 H Estimated GFR 38 L Random Glucose 94 Hemoglobin A1c 5.3 Calcium 8.5 Phosphorus 2.9 D Magnesium 2.1 D Total Bilirubin 0.8 AST 57 H ALT 26 Alkaline Phosphatase 131 H Total Protein 5.9 L Albumin 2.2 L - Procedures Preoperative Diagnosis: Lumbar degenerative disk disease with spondylolisthesis and severe spinal stenosis Postoperative Diagnosis: Lumbar degenerative disk disease with spondylolisthesis and severe spinal stenosis Date of procedure: 06/25/18 Procedure: L2-3, L3-4, L4-L5 laminectomy, interbody arthrodhesis using PEEK cage and autologous bone graft, L2-3, L3-4, L4-L5 instrumental fixation using transpedicular screws and rods, L2-L3,L3-4, L4-L5 posterolateral fusion using autologous bone graft and demineralized bone matrix. Microsurgical dissection Anesthesia: GETA Surgeon: Rufino Moreno MD Billing Adjudicator: Bart Perera Pathology: none sent Operation and Findings: INDICATIONS FOR THE SURGICAL PROCEDURE Ms Warner is a 72 year-old female who presented with intractable mechanical back pain and richy evidence of L3, L4 and L5 lower extremity radiculopathy. She had severe degenerative disk disease with degenerative spondylolisthesis and severe spinal stenosis. She has failed maximum nonsurgical management including multiple modalities of conservative treatment as well as pain management interventions by an interventional pain specialist. A surgical decompression and arthrodhesis were indicated as a last resort. The [id number] details of the procedure, indications, alternatives, risks and potential complications were fully discussed with the patient. The patient fully understood. All the questions were answered. No guarantees were given. He voiced requesting the procedure and provided informed consents. He was offered the alternative of delaying the procedure and continuing with nonsurgical management. DETAILS OF THE SURGICAL PROCEDURE Prior to the procedure, the procedure, risks, and potential complications revisited with the patient. Placement of electrodes for intraoperative neurophysiological monitoring was completed. The patient was taken to the operative room, and following induction of general anesthesia, endotracheal intubation was performed. A Ruffin catheter, bilateral ARA hose and sequential compression devices were placed and kept throughout the procedure. The patient was positioned prone, over a Mikael table over a bolsters. All pressure in the preoperative surgical holding room points were carefully padded with eggcrate and gel mattress. The eyes were tapped shut after ointment was applied by the anesthesiologist to prevent corneal abrasion. A Andrew hugger was placed over the exposed lower body to maintain control of the core body temperature. The electrophysiological team placed the needles and electrodes in their proper location and baseline SSEP's and motor evoked potentials were registered. The entrance to each pedicles was marked using a C arm. The lumbar region was prepped and draped in the usual sterile fashion. The surgical procedure was performed in several steps as follow: SURGICAL APPROACH Once the patient was positioned, a localizing cross-table lateral and AP x-ray was performed with a C-arm. Two paramedian small incisions were outlined on the skin approximately 3cm from the midline. The skin incisions were made with a # 10 blade. Small bleeders were controlled with the cautery. The dissection was then carried out into deeper planes and through the thoracolumbar fascia with a Bovie. The intermuscular septum was identified and the muscles were blunted dissected along the septum. The facets and transverse process of L2-3, L3-4, L4- L5 were exposed and the proper anatomical landmarks were identified. A microsurgical self-retaining retractor was placed on the incision, and a localizing lateralizing cross-table x-ray was performed with an instrument underneath a lamina of the lumbar spine. INSTRUMENTAL FIXATION At this point in the procedure, placement of bilateral transpedicular screws was necessary for stabilization of the spine. Initially, the entry point for the screw was selected anatomically at the junction of the facet, with the transverse process, and the pars interarticularis at L2, L3, L4, and L5. This was started with a Giamshetti needle, followed by the use of K wire. A tap was used to create the threads for the screws. Finally bilateral transpedicular screws were carefully placed bilaterally at L3, L4, and L5 under fluoroscopic visualization. An appropriate purchase was achieved with all screws. The position of each screw was assessed anatomically with an AP, lateral, oblique Xrays. An intraoperative scan view of the spine was then performed using the iso -centric c-arm. Each screw was then assessed electrophysiologically stimulating each screw with a nerve stimulator. SURGICAL DECOMPRESSION There was significant mass effect with compression of the neural structures. In order to relieve neural compression, it was necessary to perform a decompressive laminectomy, with decompression of the spinal canal and bilateral lateral recesses. Note that the scope of such decompression was significantly more extensive than the minimal exposure necessary to perform an interbody fusion, as there was extreme facet arthropathy with severe degeneration of the disk spaces and stenosis cause by the hyperthrophic joint facets. At this point of the procedure the operative microscope was draped in the usual sterile fashion and brought to the field. The rest of the surgical procedure was performed using microdissection technique with the exception of the closure. Under the operating microscope, a decompressive laminectomy was carried out at L3-4, L4,5 as follow: The laminae, base of the spinous processes and facets were carefully drilled exposing the ligamentum flavum. The facets were abnormal with severe spondylolisthesis and gross mechanical instability. A large disk protusion was compressing the neural structures and exiting nerve roots. A near complete facetectomy was necessary resulting in further mechanical instability. The ligamentum flavum appeared hypertrophic, resulting on mass effect on the dorsal surface of the neural structures. The superior free border of the ligamentum flavum was elevated with a ligament dissector and the ligamentum flavum was removed with a 3 and 4 mm Kerrison forceps. The ligament was very adherent to the dural sac and during the dissection, ans extreme care was taken during the dissection. The exiting nerve roots were identified, and a wide foraminotomy was performed with a Kerrison in their trajectory towards the neural foramen. Epidural veins located laterally to the dural sac were coagulated with the bipolar cautery, and then incised using microscissors. Gentle medial retraction of the dural sac allowed me to expose the disc space for the discectomy. Upon completion of the discectomy, an excellent decompression of the neural structures was achieved. INTERBODY ARTHRODHESIS In order to correct the narrowing of the disk space and maintain distraction of the space, and to achieve a solid interbody fusion, it was necessary the insertion of an interbody device into the disk space. Otherwise, the disk space would collapse, compromising the result of the surgical procedure. At this point of the procedure, the annulus fibrosus of the disk was carefully coagulated with a bipolar cautery and incised using an 11 bladed knife. Then, a microdiscectomy was carried out in a standard fashion using a combination of straight and up-biting pituitary forceps. A reverse angle curette was applied underneath the posterior longitudinal ligament, and used to push the disk fragments into the disk space, so they can be safely removed with a pituitary forceps. Once the discectomy was completed, it was necessary to decorticate the endplates, in order to eliminate the cartilaginous endplate and to expose healthy bone appropriate to perform the interbody fusion. The endplates at L3-4 , L4,5 were then thoroughly decorticated using increasing size bone tameka and ring curets, eliminating the cartilaginous fragments from both, the superior and inferior endplates. A disk space distractor was applied to the pedicle screws and gentle distraction was applied. This maneuver was assisted by the use of a disk distractor. Increased motility was noted at the disk, which was consistent with instability due to facet arthropathy. Once a thorough preparation of the disk space was achieved, the disk space was irrigated with antibiotic solution, and the interbody fusion was performed by carefully impacting PEEK cages filled with autologous iliac crest bone graft. The use of several shoe impactors with different angulation, allowed me for an excellent, proper position of the interbody cages at L2-3 L3-4 and L4,5. A solid position of the cage with good purchase was achieved. The position of the cages were assessed anatomically with a probe and radiologically with the C-arm. POSTEROLATERAL FUSION The posterolateral fusion is a critical component to the procedure, to prevent future fatigue and failure of the instrumental fixation. Initially, the transverse processes of the vertebral bodies, lateral surface of the facets and the lateral gutters of the spine were carefully cleaned, eliminating all soft tissue and muscle attachments. The area was then irrigated with a large amount of antibiotic solution. Subsequently, the transverse processes, lateral surface of the facets, and lateral gutters of the spine were thoroughly decorticated using the TPS drill with a 5mm cutting jasmyne, exposing cancellous bone, in preparation for the posterolateral fusion. The incision was again irrigated with antibiotic solution. Then, the posterolateral fusion was then performed by carefully packing the lateral gutters of the spine at L2-3, L3-4, L4,5 with autologous bone graft combined with demineralized bone matrix. I packed as much bone as possible. COMPLETION OF THE INSTRUMENTATION AND CLOSURE The rods were brought to the field, applied to all the screws, and the screw caps were sequentially applied. Compression was performed between the pedicle screws, and final tightening of the screws was completed using a torque wrench. The incision was again thoroughly irrigated with several liters of antibiotic solution, and hemostasis secured with the bipolar cautery. A Valsalva Maneuver performed by the anesthesiologist failed to show any evidence of cerebrospinal fluid leak or bleeding. A 7 mm Mikael-Lafleur drain was left in the epidural space and externalized through a separate stab incision. The incision was then closed in planes. 0 Vicryl was used in an interrupted fashion to close the thoracolumbar fascia and the superficial fascia. The subcutaneous tissue was then approximated using 3-0 Vicryl in an interrupted fashion. Special care was taken to avoid space. The skin was then closed with 4-0 Vicryl in a running, subcuticular fashion. Dermabond was applied to the skin. Each plane of closure was irrigated with antibiotic solution. At the end of the procedure the sponge, needle and instrument counts were all correct. Estimated blood loss was 1000 cc. The patient received 2 UPRBC, and autologous blood via the cell saver. The entire procedure was performed using continuous electrophysiological monitoring of the somatosensorial evoked potentials and EMG. The patient received prophylactic antibiotics. The patient was then extubated and transferred to the recovery room in stable condition. Documented By: Rufino Moreno MD Assessment and Plan - Plan Lower back pain with radiculopathy -Status post lumbar spine surgical intervention -Continue gabapentin -ROBAXIN IF AVAILABLE SWITCH TO PO MEDS -Regular neuro checks lower extremities. -Physical therapy OT Hypertension -Continue Atenolol and hydrochlorothiazide Dyslipidemia -Atorvastatin DVT GI prophylaxis -Teds SCDs -Pharmacological DVT prophylaxis per neurosurgeon -Pantoprazole ANEMIA STABLE- OK TO DC Overall impression: Good pain relief, stable hemodynamics and respiratory function. Motor sensory function lower extremities intact. Uneventful postoperative course following lumbar decompression and stabilization. OK TO DISCHARGE Code Status: FULL CODE Discussed Condition With: RN AND PT AND CM AND NEUROSURGERY Discharge Planning: HOPEFULLY HOME TOMORROW
--- NOTE | 2018-06-29 12:40 | P.DCO ---
- Physical Therapy Order: Evaluate and treat, Improve ambulation, Strength and gait training - Occupational Therapy Order: Evaluate and treat, Improve ADL, Gross motor coordination, Fine motor coordination - Home Health Nursing Order: Signs/symptoms of disease process, Wound care and dressing changes, Nursing assessment with vital signs - Home Health Aide Order: To assist in: Bathing and personal care, wafer cleaner and meal prep - Certification I have seen patient Cathryn Warner on 06/29/18. My clinical findings support the need for the requested home health care services because: Limited mobility due to disease progression, Patient has SOB, Deconditioned with increased weakness, High risk of falls I certify that my clinical findings support that this patient is homebound because: Post-op weakness, Unsteady gait/balance, Need for psychosocial assistance
[2018-06-29 12:57] VITALS: BP 106/47; RESP 18; TEMP 98.6; O2SAT 99
[2018-06-29] MEDS: Methocarbamol 500 MG Tablet PO SCH ×2 (13:04→13:05)
--- NOTE | 2018-07-05 14:41 | P.DS ---
Date of admission: 06/25/18 19:00 Primary care physician: UNKNOWN Brief History from admission: Ms Warner is a 72 year-old female who presented with intractable mechanical back pain and richy evidence of L3, L4 and L5 lower extremity radiculopathy. She had severe degenerative disk disease with degenerative spondylolisthesis and severe spinal stenosis. She has failed maximum nonsurgical management including multiple modalities of conservative treatment as well as pain management interventions by an interventional pain specialist. A surgical decompression and arthrodhesis were indicated as a last resort. DS: Medications - Discharge Medications Prescriptions: methocarbamol 500 mg PO Q8HR #90 tab sennosides-docusate sodium [Senna Plus] 2 tab PO BID #120 tab DS: Summary Hospital Course: Ms. Warner underwent L2-3, L3-4, L4-L5 laminectomy, interbody arthrodhesis using PEEK cage and autologous bone graft, L2-3, L3-4, L4-L5 instrumental fixation using transpedicular screws and rods, L2-L3,L3-4, L4-L5 posterolateral fusion using autologous bone graft and demineralized bone matrix. Microsurgical dissection for Lumbar degenerative disk disease with spondylolisthesis and severe spinal stenosis on 06/25/18. Following surgery she was admitted to intensive care for hemodynamic monitoring and critical care consultation. She was transitioned out to a medical surgical floor and was followed by a medical physician. 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 She was discharged with home health care service in stable conditions. - Time Spent with Patient Total time spent providing and/or coordinating discharge services: Less than 30 minutes - Quality: VTE Deep Vein Thrombosis/Pulmonary Embolism Present on Admission: No Results Procedures completed during hospitalization: Preoperative Diagnosis: Lumbar degenerative disk disease with spondylolisthesis and severe spinal stenosis Postoperative Diagnosis: Lumbar degenerative disk disease with spondylolisthesis and severe spinal stenosis Date of procedure: 06/25/18 Procedure: L2-3, L3-4, L4-L5 laminectomy, interbody arthrodhesis using PEEK cage and autologous bone graft, L2-3, L3-4, L4-L5 instrumental fixation using transpedicular screws and rods, L2-L3,L3-4, L4-L5 posterolateral fusion using autologous bone graft and demineralized bone matrix. Microsurgical dissection Anesthesia: GETA Surgeon: Rufino Moreno MD Academic Affairs Director: Bart Perera Pathology: none sent Operation and Findings: INDICATIONS FOR THE SURGICAL PROCEDURE Ms Warner is a 72 year-old female who presented with intractable mechanical back pain and richy evidence of L3, L4 and L5 lower extremity radiculopathy. She had severe degenerative disk disease with degenerative spondylolisthesis and severe spinal stenosis. She has failed maximum nonsurgical management including multiple modalities of conservative treatment as well as pain management interventions by an interventional pain specialist. A surgical decompression and arthrodhesis were indicated as a last resort. The [id number] details of the procedure, indications, alternatives, risks and potential complications were fully discussed with the patient. The patient fully understood. All the questions were answered. No guarantees were given. He voiced requesting the procedure and provided informed consents. He was offered the alternative of delaying the procedure and continuing with nonsurgical management. DETAILS OF THE SURGICAL PROCEDURE Prior to the procedure, the procedure, risks, and potential complications revisited with the patient. Placement of electrodes for intraoperative neurophysiological monitoring was completed. The patient was taken to the operative room, and following induction of general anesthesia, endotracheal intubation was performed. A Ruffin catheter, bilateral ARA hose and sequential compression devices were placed and kept throughout the procedure. The patient was positioned prone, over a Mikael table over a bolsters. All pressure in the preoperative surgical holding room points were carefully padded with eggcrate and gel mattress. The eyes were tapped shut after ointment was applied by the anesthesiologist to prevent corneal abrasion. A Andrew hugger was placed over the exposed lower body to maintain control of the core body temperature. The electrophysiological team placed the needles and electrodes in their proper location and baseline SSEP's and motor evoked potentials were registered. The entrance to each pedicles was marked using a C arm. The lumbar region was prepped and draped in the usual sterile fashion. The surgical procedure was performed in several steps as follow: SURGICAL APPROACH Once the patient was positioned, a localizing cross-table lateral and AP x-ray was performed with a C-arm. Two paramedian small incisions were outlined on the skin approximately 3cm from the midline. The skin incisions were made with a # 10 blade. Small bleeders were controlled with the cautery. The dissection was then carried out into deeper planes and through the thoracolumbar fascia with a Bovie. The intermuscular septum was identified and the muscles were blunted dissected along the septum. The facets and transverse process of L2-3, L3-4, L4- L5 were exposed and the proper anatomical landmarks were identified. A microsurgical self-retaining retractor was placed on the incision, and a localizing lateralizing cross-table x-ray was performed with an instrument underneath a lamina of the lumbar spine. INSTRUMENTAL FIXATION At this point in the procedure, placement of bilateral transpedicular screws was necessary for stabilization of the spine. Initially, the entry point for the screw was selected anatomically at the junction of the facet, with the transverse process, and the pars interarticularis at L2, L3, L4, and L5. This was started with a Giamshetti needle, followed by the use of K wire. A tap was used to create the threads for the screws. Finally bilateral transpedicular screws were carefully placed bilaterally at L3, L4, and L5 under fluoroscopic visualization. An appropriate purchase was achieved with all screws. The position of each screw was assessed anatomically with an AP, lateral, oblique Xrays. An intraoperative scan view of the spine was then performed using the iso -centric c-arm. Each screw was then assessed electrophysiologically stimulating each screw with a nerve stimulator. SURGICAL DECOMPRESSION There was significant mass effect with compression of the neural structures. In order to relieve neural compression, it was necessary to perform a decompressive laminectomy, with decompression of the spinal canal and bilateral lateral recesses. Note that the scope of such decompression was significantly more extensive than the minimal exposure necessary to perform an interbody fusion, as there was extreme facet arthropathy with severe degeneration of the disk spaces and stenosis cause by the hyperthrophic joint facets. At this point of the procedure the operative microscope was draped in the usual sterile fashion and brought to the field. The rest of the surgical procedure was performed using microdissection technique with the exception of the closure. Under the operating microscope, a decompressive laminectomy was carried out at L3-4, L4,5 as follow: The laminae, base of the spinous processes and facets were carefully drilled exposing the ligamentum flavum. The facets were abnormal with severe spondylolisthesis and gross mechanical instability. A large disk protusion was compressing the neural structures and exiting nerve roots. A near complete facetectomy was necessary resulting in further mechanical instability. The ligamentum flavum appeared hypertrophic, resulting on mass effect on the dorsal surface of the neural structures. The superior free border of the ligamentum flavum was elevated with a ligament dissector and the ligamentum flavum was removed with a 3 and 4 mm Kerrison forceps. The ligament was very adherent to the dural sac and during the dissection, ans extreme care was taken during the dissection. The exiting nerve roots were identified, and a wide foraminotomy was performed with a Kerrison in their trajectory towards the neural foramen. Epidural veins located laterally to the dural sac were coagulated with the bipolar cautery, and then incised using microscissors. Gentle medial retraction of the dural sac allowed me to expose the disc space for the discectomy. Upon completion of the discectomy, an excellent decompression of the neural structures was achieved. INTERBODY ARTHRODHESIS In order to correct the narrowing of the disk space and maintain distraction of the space, and to achieve a solid interbody fusion, it was necessary the insertion of an interbody device into the disk space. Otherwise, the disk space would collapse, compromising the result of the surgical procedure. At this point of the procedure, the annulus fibrosus of the disk was carefully coagulated with a bipolar cautery and incised using an 11 bladed knife. Then, a microdiscectomy was carried out in a standard fashion using a combination of straight and up-biting pituitary forceps. A reverse angle curette was applied underneath the posterior longitudinal ligament, and used to push the disk fragments into the disk space, so they can be safely removed with a pituitary forceps. Once the discectomy was completed, it was necessary to decorticate the endplates, in order to eliminate the cartilaginous endplate and to expose healthy bone appropriate to perform the interbody fusion. The endplates at L3-4 , L4,5 were then thoroughly decorticated using increasing size bone tameka and ring curets, eliminating the cartilaginous fragments from both, the superior and inferior endplates. A disk space distractor was applied to the pedicle screws and gentle distraction was applied. This maneuver was assisted by the use of a disk distractor. Increased motility was noted at the disk, which was consistent with instability due to facet arthropathy. Once a thorough preparation of the disk space was achieved, the disk space was irrigated with antibiotic solution, and the interbody fusion was performed by carefully impacting PEEK cages filled with autologous iliac crest bone graft. The use of several shoe impactors with different angulation, allowed me for an excellent, proper position of the interbody cages at L2-3 L3-4 and L4,5. A solid position of the cage with good purchase was achieved. The position of the cages were assessed anatomically with a probe and radiologically with the C-arm. POSTEROLATERAL FUSION The posterolateral fusion is a critical component to the procedure, to prevent future fatigue and failure of the instrumental fixation. Initially, the transverse processes of the vertebral bodies, lateral surface of the facets and the lateral gutters of the spine were carefully cleaned, eliminating all soft tissue and muscle attachments. The area was then irrigated with a large amount of antibiotic solution. Subsequently, the transverse processes, lateral surface of the facets, and lateral gutters of the spine were thoroughly decorticated using the TPS drill with a 5mm cutting jasmyne, exposing cancellous bone, in preparation for the posterolateral fusion. The incision was again irrigated with antibiotic solution. Then, the posterolateral fusion was then performed by carefully packing the lateral gutters of the spine at L2-3, L3-4, L4,5 with autologous bone graft combined with demineralized bone matrix. I packed as much bone as possible. COMPLETION OF THE INSTRUMENTATION AND CLOSURE The rods were brought to the field, applied to all the screws, and the screw caps were sequentially applied. Compression was performed between the pedicle screws, and final tightening of the screws was completed using a torque wrench. The incision was again thoroughly irrigated with several liters of antibiotic solution, and hemostasis secured with the bipolar cautery. A Valsalva Maneuver performed by the anesthesiologist failed to show any evidence of cerebrospinal fluid leak or bleeding. A 7 mm Mikael-Lafleur drain was left in the epidural space and externalized through a separate stab incision. The incision was then closed in planes. 0 Vicryl was used in an interrupted fashion to close the thoracolumbar fascia and the superficial fascia. The subcutaneous tissue was then approximated using 3-0 Vicryl in an interrupted fashion. Special care was taken to avoid space. The skin was then closed with 4-0 Vicryl in a running, subcuticular fashion. Dermabond was applied to the skin. Each plane of closure was irrigated with antibiotic solution. At the end of the procedure the sponge, needle and instrument counts were all correct. Estimated blood loss was 1000 cc. The patient received 2 UPRBC, and autologous blood via the cell saver. The entire procedure was performed using continuous electrophysiological monitoring of the somatosensorial evoked potentials and EMG. The patient received prophylactic antibiotics. The patient was then extubated and transferred to the recovery room in stable condition. Documented By: Rufino Moreno MD - Impressions ITS Impressions Chest X-Ray 06/25/18 00:00 CONCLUSION: 1. New right IJ line with tip at the atriocaval junction. No pneumothorax. 2. Left greater than right basilar atelectasis. Lumbar Spine X-Ray 06/25/18 00:00 CONCLUSION: Fusion procedure with interbody and posterior instrumentation at L2-L5. Alignment is within normal limits. No acute complication demonstrated. Discharge Plan - Discharge Disposition Patient Disposition: W/Home Health Service - Discharge Condition Condition: Stable - Discharge Order Discharge Orders: Discharge Order (Routine); Ordered 06/29/18 Ordered By: Renetta Frostist Clear for Discharge (Routine); Ordered 06/29/18 Ordered By: Evgeny Domingo - Discharge Details Anticipated Discharge Date: 06/29/18 Discharge Comment: DC TO HOME WITH [facility] - Physicians Team Primary Care Provider: UNKNOWN, Attending Provider: Rufino Moreno Other Providers: Parrish Kidd MD ; Dani Louise ; Evgeny Domingo, - Rxs /Orders / Referrals /Forms Prescriptions: New methocarbamol 500 mg Tablet 500 mg PO Q8HR Qty: 90 RF: 0 sennosides-docusate sodium [Senna Plus] 8.6-50 mg Tablet 2 tab PO BID Qty: 120 RF: 0 Continue atenolol 100 mg Tablet 100 mg PO DAILY atorvastatin 10 mg Tablet 10 mg PO DAILY cholecalciferol (vitamin D3) [Vitamin D3] 1,000 unit Capsule 1,000 unit PO DAILY gabapentin 400 mg Capsule 400 mg PO QID hydrochlorothiazide 25 mg Tablet 25 mg PO QAM hydrocodone-acetaminophen 7.5-325 mg Tablet 1 tab PO Q6H PRN (Reason: Pain) levothyroxine 75 mcg Capsule 75 mcg PO DAILY magnesium 250 mg Tablet 250 mg PO DAILY [id number]-vit K [Adults Multivitamin] 18 mg iron-400 mcg-25 mcg Tablet 1 tab PO DAILY omeprazole 20 mg Capsule,Delayed Release(Dr/Ec) 20 mg PO DAILY Ambulatory Orders / Order Sets / DME: Adjustable Commode 3-in-1 (1 each) (Routine) Location: Determined by Patient Ordered By: Renetta Rosario Walker With Front Wheels (1 each) (Routine) Location: Determined by Patient Ordered By: Renetta Rosario Referrals: [facility], [Agency] - See Instructions UNKNOWN, [Primary Care Provider] - See Instructions - Discharge Instructions Patient Printed Instructions: Laminectomy (DC), Lumbar Spinal Fusion (DC)
== END 2018-06-29 14:13 | disposition home health service (06) ==
LOC: HSDC 05:18 → EDSTATUS 08:30 → HSDI 19:00 → N03 20:27
PROVIDERS: ADMIT Neurological Surgery; ATTEND Neurological Surgery
PROC: LAMPLIF (2018-06-25 08:33)